=== PATIENT | male | born 1965 | race Caucasian/White ===

== ENCOUNTER 2016-12-10 12:59 | Inpatient (IN) | payer MEDICARE, OTHER ==
[2016-12-10] MEDS ORDERED: SODIUM CHLORIDE 0.9% 1,000 ML IV ONE (13:08)
--- NOTE | 2016-12-10 13:25 | ED ---
Overdose HPI - General Chief Complaint: Overdose Stated Complaint: overdose Time Seen by Provider: 12/10/16 13:06 Source: police, EMS Mode of arrival: EMS Limitations: altered mental status - History of Present Illness Initial Comments: This is a 51-year-old male with unknown past medical history who presents emergency department for overdose on diphenhydramine. The patient is unable to provide any history because of his mental status changes however the patient reportedly took 9025 mg tabs of diphenhydramine within the last hour. The EMS stated that he did not state that it was a suicide attempt and that he was just taking it because he couldn't sleep and had "the sniffles". Again the patient is unable to answer any questions because of mental status changes at this time. - Related Data Home Medications Medication Instructions Recorded Confirmed Unable To Assess [Unable to Assess] 12/10/16 12/10/16 Allergies Allergy/AdvReac Type Severity Reaction Status Date / Time Unable to Assess Allergy Verified 12/10/16 13:23 Review of Systems ROS Statement: Those systems with pertinent positive or pertinent negative responses have been documented in the HPI. ROS Other: All systems not noted in ROS Statement are negative. Past Medical History Past Medical History: Unable to Obtain History of Any Multi-Drug Resistant Organisms: Unobtainable Past Surgical History: Unable to Obtain Past Psychological History: Unable to Obtain Smoking Status: Unknown if ever smoked Past Alcohol Use History: Unable to Obtain Past Drug Use History: Unable to Obtain General Exam - General Exam Comments Initial Comments: Constitutional: He is awake and alert however will not answer questions, he is slightly agitated Head: Normocephalic atraumatic Eyes: no conjunctival injection No scleral icterus EOMI, pupils are 5 mm and reactive bilaterally Neck: No JVD Supple Heart: Regular rate rhythm normal S1-S2 no murmurs Lungs: Clear to auscultation bilaterally No wheezing No rales Abdomen: Soft nondistended nontender, bowel sounds are present Extremities: Non edematous DP pulses intact Radial pulses intact Neuro: A&Ox3 the patient will move his extremities spontaneously, he will not answer questions however does attempt to talk when spoken to, extraocular muscles are intact, will not follow commands Psych: Appropriate mood and affect Limitations: altered mental status Course Vital Signs 12/10/16 12/10/16 12/10/16 13:15 13:20 14:00 Temperature 96.8 F L Pulse Rate 120 H 116 H 104 H Respiratory 14 18 18 Rate Blood Pressure 191/116 200/116 207/111 O2 Sat by Pulse 93 L 95 Oximetry 12/10/16 12/10/16 12/10/16 14:30 14:38 15:00 Temperature 97.1 F L Pulse Rate 99 98 96 Respiratory 18 18 18 Rate Blood Pressure 195/112 190/106 197/107 O2 Sat by Pulse 100 99 97 Oximetry 12/10/16 12/10/16 12/10/16 15:30 16:03 16:18 Temperature Pulse Rate 96 95 100 Respiratory 18 18 18 Rate Blood Pressure 193/107 180/111 191/120 O2 Sat by Pulse 97 2 L 98 Oximetry - Reevaluation(s) Reevaluation #1: 12/10/16 13:24 EKG showing sinus tachycardia with a rate of 118. There is a right bundle- branch block with no abnormal ST segment changes or T-wave inversions. QTC is 496. Other intervals are normal. No ectopy. Reevaluation #2: 12/10/16 13:55 I spoke with poison control about the patient. They recommended close monitoring for the next 6-8 hours. Toxicology workup. Ativan as needed for agitation. They did not recommend charcoal because of the patient's mental status changes. Medical Decision Making - Medical Decision Making Is a 51-year-old male presents emergency department for Benadryl overdose. The patient was monitored for about 4 hours and did not have any change in his mental status. He's protecting his airway however is definitely somnolent and doesn't respond to questioning. I'm going to put him in ICU for airway monitoring until the medication can wear off. I did place psychiatric services on consultation. [facility] management. Patient is stable for transfer. - Lab Data Result diagrams: 12/10/16 13:35 12/10/16 13:35 Lab Results 12/10/16 12/10/16 12/10/16 Range/Units 13:19 13:35 13:35 WBC (3.8-10.6) k/uL RBC (4.30-5.90) m/uL Hgb (13.0-17.5) gm/dL Hct (39.0-53.0) % MCV (80.0-100.0) fL MCH (25.0-35.0) pg MCHC (31.0-37.0) g/dL RDW (11.5-15.5) % Plt Count (150-450) k/uL Neutrophils % % Lymphocytes % % Monocytes % % Eosinophils % % Basophils % % Neutrophils # (1.3-7.7) k/uL Lymphocytes # (1.0-4.8) k/uL Monocytes # (0-1.0) k/uL Eosinophils # (0-0.7) k/uL Basophils # (0-0.2) k/uL PT 11.6 (9.0-12.0) sec INR 1.2 (<1.1) APTT 19.6 L (22.0-30.0) sec Sodium 136 L (137-145) mmol/L Potassium 4.7 (3.5-5.1) mmol/L Chloride 102 (98-107) mmol/L Carbon Dioxide 22 (22-30) mmol/L Anion Gap 12 mmol/L BUN 11 (9-20) mg/dL Creatinine 0.54 L (0.66-1.25) mg/dL Est GFR (MDRD) Af Amer >60 (>60 ml/min/1.73 sqM) Est GFR (MDRD) Non-Af >60 (>60 ml/min/1.73 sqM) Glucose 278 H (74-99) mg/dL POC Glucose (mg/dL) (75-99) mg/dL POC Glu [employer] ID Plasma Lactic Acid Gonzales (0.7-2.0) mmol/L Calcium 9.6 (8.4-10.2) mg/dL Magnesium 1.8 (1.6-2.3) mg/dL Total Bilirubin 0.7 (0.2-1.3) mg/dL AST 18 (17-59) U/L ALT 22 (21-72) U/L Alkaline Phosphatase 74 (38-126) U/L Total Protein 6.8 (6.3-8.2) g/dL Albumin 3.9 (3.5-5.0) g/dL Urine Color Light Yellow Urine Appearance Clear (Clear) Urine pH 6.5 (5.0-8.0) Ur Specific [place] 1.008 (1.001-1.035) Urine Protein 1+ H (Negative) Urine Glucose (UA) 4+ H (Negative) Urine Ketones 1+ H (Negative) Urine Blood Negative (Negative) Urine Nitrite Negative (Negative) Urine Bilirubin Negative (Negative) Urine Urobilinogen <2.0 (<2.0) mg/dL Ur Leukocyte Esterase Negative (Negative) Urine RBC <1 (0-5) /hpf Urine WBC <1 (0-5) /hpf Ur Squamous Epith Cells <1 (0-4) /hpf Salicylates <1.0 mg/dL Urine Opiates Screen Not Detected (NotDetected) Ur Oxycodone Screen Not Detected (NotDetected) Urine Methadone Screen Not Detected (NotDetected) Ur Propoxyphene Screen Not Detected (NotDetected) Acetaminophen <10.0 ug/mL Ur Barbiturates Screen Not Detected (NotDetected) U Tricyclic Antidepress Not Detected (NotDetected) Ur Phencyclidine Scrn Not Detected (NotDetected) Ur Amphetamines Screen Not Detected (NotDetected) U Methamphetamines Scrn Not Detected (NotDetected) U Benzodiazepines Scrn Not Detected (NotDetected) Urine Cocaine Screen Not Detected (NotDetected) U Marijuana (THC) Screen Not Detected (NotDetected) Serum Alcohol <10 mg/dL 12/10/16 12/10/16 12/10/16 Range/Units 13:35 13:35 15:44 WBC 9.2 (3.8-10.6) k/uL RBC 6.04 H (4.30-5.90) m/uL Hgb 18.3 H (13.0-17.5) gm/dL Hct 54.6 H (39.0-53.0) % MCV 90.3 (80.0-100.0) fL MCH 30.2 (25.0-35.0) pg MCHC 33.4 (31.0-37.0) g/dL RDW 13.3 (11.5-15.5) % Plt Count 279 (150-450) k/uL Neutrophils % 69 % Lymphocytes % 21 % Monocytes % 7 % Eosinophils % 1 % Basophils % 1 % Neutrophils # 6.4 (1.3-7.7) k/uL Lymphocytes # 2.0 (1.0-4.8) k/uL Monocytes # 0.6 (0-1.0) k/uL Eosinophils # 0.1 (0-0.7) k/uL Basophils # 0.1 (0-0.2) k/uL PT (9.0-12.0) sec INR (<1.1) APTT (22.0-30.0) sec Sodium (137-145) mmol/L Potassium (3.5-5.1) mmol/L Chloride (98-107) mmol/L Carbon Dioxide (22-30) mmol/L Anion Gap mmol/L BUN (9-20) mg/dL Creatinine (0.66-1.25) mg/dL Est GFR (MDRD) Af Amer (>60 ml/min/1.73 sqM) Est GFR (MDRD) Non-Af (>60 ml/min/1.73 sqM) Glucose (74-99) mg/dL POC Glucose (mg/dL) 206 H (75-99) mg/dL POC Glu [employer] ID RiveraTasha Plasma Lactic Acid Gonzales 1.3 (0.7-2.0) mmol/L Calcium (8.4-10.2) mg/dL Magnesium (1.6-2.3) mg/dL Total Bilirubin (0.2-1.3) mg/dL AST (17-59) U/L ALT (21-72) U/L Alkaline Phosphatase (38-126) U/L Total Protein (6.3-8.2) g/dL Albumin (3.5-5.0) g/dL Urine Color Urine Appearance (Clear) Urine pH (5.0-8.0) Ur Specific [place] (1.001-1.035) Urine Protein (Negative) Urine Glucose (UA) (Negative) Urine Ketones (Negative) Urine Blood (Negative) Urine Nitrite (Negative) Urine Bilirubin (Negative) Urine Urobilinogen (<2.0) mg/dL Ur Leukocyte Esterase (Negative) Urine RBC (0-5) /hpf Urine WBC (0-5) /hpf Ur Squamous Epith Cells (0-4) /hpf Salicylates mg/dL Urine Opiates Screen (NotDetected) Ur Oxycodone Screen (NotDetected) Urine Methadone Screen (NotDetected) Ur Propoxyphene Screen (NotDetected) Acetaminophen ug/mL Ur Barbiturates Screen (NotDetected) U Tricyclic Antidepress (NotDetected) Ur Phencyclidine Scrn (NotDetected) Ur Amphetamines Screen (NotDetected) U Methamphetamines Scrn (NotDetected) U Benzodiazepines Scrn (NotDetected) Urine Cocaine Screen (NotDetected) U Marijuana (THC) Screen (NotDetected) Serum Alcohol mg/dL Disposition Clinical Impression: Diphenhydramine overdose Disposition: ADMITTED IP TO THIS HOSP Condition: Critical
[2016-12-10 13:27] LABS: Appearance,Urine Clear (Clear); Bilirubin,Urine Negative (Negative); Glucose,Urine (UA) 4+ (Negative); Ketones,Urine 1+ (Negative); Leukocyte Esterase,Urine Negative (Negative); Nitrite,Urine Negative (Negative); PH, Urine 6.5 (5.0-8.0); Particle Count 700; Protein,Urine 1+ (Negative); RBC,Urine <1 /hpf (0-5); Specific Gravity,Urine 1.008 (1.001-1.035); Squamous Epithelial Cell,Urine <1 /hpf (0-4); UA Billing (MACRO vs. MICRO) MICRO; Urobilinogen,Urine <2.0 mg/dL (<2.0); WBC,Urine <1 /hpf (0-5)
[2016-12-10] MEDS: SODIUM CHLORIDE 0.9% 1,000 ML IV SCH ×2 (13:54→23:43)
[2016-12-10] MEDS ORDERED: LORazepam 2 MG/ML SYRINGE IV STA ×2 (13:55→13:57)
[2016-12-10 14:14] LABS: INR 1.2 (<1.1); Prothrombin Time 11.6 sec (9.0-12.0)
[2016-12-10 14:23] LABS: Partial Thromboplastin Time 19.6 sec (22.0-30.0)
[2016-12-10 15:23] LABS: Basophils # (A) 0.1 k/uL (0-0.2); Basophils % (A) 1 %; CH 30.6; Eosinophils # (A) 0.1 k/uL (0-0.7); Eosinophils % (A) 1 %; HCT 54.6 % (39.0-53.0); HDW 2.27; HGB 18.3 gm/dL (13.0-17.5); Luc # (Auto) 0.16; Luc % (Auto) 2; Lymphocytes % (A) 21 %; MCH 30.2 pg (25.0-35.0); MCHC 33.4 g/dL (31.0-37.0); MCV 90.3 fL (80.0-100.0); Mean Platelet Volume 8.5; Monocytes # (A) 0.6 k/uL (0-1.0); Monocytes % (A) 7 %; Neutrophils # (A) 6.4 k/uL (1.3-7.7); Neutrophils % (A) 69 %; RBC 6.04 m/uL (4.30-5.90); RDW 13.3 % (11.5-15.5); WBC 9.2 k/uL (3.8-10.6); WBC (Perox) 9.46
[2016-12-10 15:24] LABS: ALT 22 U/L (21-72); AST 18 U/L (17-59); Acetaminophen <10.0 ug/mL; Alcohol <10 mg/dL; Alkaline Phosphatase 74 U/L (38-126); Anion Gap 12 mmol/L; Blood Urea Nitrogen 11 mg/dL (9-20); Calcium 9.6 mg/dL (8.4-10.2); Carbon Dioxide 22 mmol/L (22-30); Chloride 102 mmol/L (98-107); Glucose 278 mg/dL (74-99); Magnesium 1.8 mg/dL (1.6-2.3); Non-African American GFR(MDRD) >60 (>60 ml/min/1.73 sqM); Salicylate <1.0 mg/dL; Sodium 136 mmol/L (137-145); Total Bilirubin 0.7 mg/dL (0.2-1.3); Total Protein 6.8 g/dL (6.3-8.2)
[2016-12-10 15:25] LABS: Potassium 4.7 mmol/L (3.5-5.1)
[2016-12-10 15:45] LABS: Glucose,Whole Blood 206 mg/dL (75-99)
[2016-12-10] MEDS ORDERED: LABETALOL 5 MG/ML VIAL MDV IVP STA (16:09)
--- NOTE | 2016-12-10 16:09 | CT ---
EXAMINATION TYPE: CT brain wo con DATE OF EXAM: 12/10/2016 4:03 PM HISTORY: Patient overdosed on medication, headache per order. CT DLP: 1097.2 mGycm. Automated Exposure Control for Dose Reduction was Utilized. TECHNIQUE: CT scan of the head is performed without contrast. COMPARISON: None. FINDINGS: There is no acute intracranial hemorrhage or midline shift identified. There is diffuse v entricular and sulcal prominence consistent with diffuse age-related cerebral atrophy. There is low- attenuation in the periventricular white matter consistent with chronic small vessel ischemic change. The globes are intact and the visualized sinuses are clear. IMPRESSION: No acute intracranial hemorrhage or midline shift. There is mild to moderate diffuse ag e-related cerebral atrophy and chronic small vessel ischemic change noted.
[2016-12-10] MEDS ORDERED: NALOXONE 0.4 MG/ML 1 ML VIAL IV PRN (16:19)
[2016-12-10 17:26] LABS: Glucose,Whole Blood 196 mg/dL (75-99)
[2016-12-10] MEDS ORDERED: LABETALOL 5 MG/ML VIAL MDV IVP PRN ×2 (18:14)
[2016-12-10] MEDS ORDERED: LORazepam 2 MG/ML SYRINGE IV PRN (18:20)
[2016-12-10] MEDS ORDERED: INSULIN LISPRO (humaLOG) 300 UNIT/3 ML VIAL SQ SCH (19:00)
[2016-12-10] MEDS ORDERED: HALOPERIDOL LACTATE 5 MG/ML 1 ML VIAL IVP PRN (20:34)
[2016-12-10] MEDS: PANTOPRAZOLE 40 MG/10 ML VIAL IVP SCH (20:37)
[2016-12-10 20:41] LABS: Glucose,Whole Blood 209 mg/dL (75-99)
[2016-12-10] MEDS: HEPARIN SODIUM,PORCINE 5,000 UNIT/ML 1 ML VIAL SQ SCH (20:45)
[2016-12-10 22:08] VITALS: RESP 16
[2016-12-10 22:29] LABS: Hemoglobin A1C 11.9 % (4.2-6.1)
[2016-12-10 23:42] LABS: Glucose,Whole Blood 198 mg/dL (75-99)
[2016-12-10] MEDS: INSULIN LISPRO (humaLOG) 300 UNIT/3 ML VIAL SQ SCH (23:44)
[2016-12-11 04:45] LABS: Basophils % (A) 0 %; CH 29.9; CHCM 31.8; Eosinophils % (A) 0 %; HCT 50.7 % (39.0-53.0); HDW 2.18; HGB 16.1 gm/dL (13.0-17.5); Luc # (Auto) 0.22; Luc % (Auto) 2; Lymphocytes # (A) 1.8 k/uL (1.0-4.8); Lymphocytes % (A) 14 %; MCHC 31.8 g/dL (31.0-37.0); MCV 94.5 fL (80.0-100.0); Mean Platelet Volume 7.1; Monocytes # (A) 1.1 k/uL (0-1.0); Monocytes % (A) 9 %; Neutrophils # (A) 9.7 k/uL (1.3-7.7); Neutrophils % (A) 76 %; RBC 5.37 m/uL (4.30-5.90); RDW 13.7 % (11.5-15.5); WBC 12.9 k/uL (3.8-10.6); WBC (Perox) 13.56
[2016-12-11 05:02] LABS: ALT 24 U/L (21-72); AST 13 U/L (17-59); Alkaline Phosphatase 70 U/L (38-126); Anion Gap 14 mmol/L; Blood Urea Nitrogen 6 mg/dL (9-20); Calcium 9.4 mg/dL (8.4-10.2); Carbon Dioxide 19 mmol/L (22-30); Chloride 106 mmol/L (98-107); Glucose 195 mg/dL (74-99); Magnesium 1.5 mg/dL (1.6-2.3); Non-African American GFR(MDRD) >60 (>60 ml/min/1.73 sqM); Phosphorous 4.1 mg/dL (2.5-4.5); Potassium 4.2 mmol/L (3.5-5.1); Sodium 139 mmol/L (137-145); Total Bilirubin 0.7 mg/dL (0.2-1.3); Total Protein 5.9 g/dL (6.3-8.2)
[2016-12-11 06:13] LABS: Glucose,Whole Blood 202 mg/dL (75-99)
[2016-12-11] MEDS: INSULIN LISPRO (humaLOG) 300 UNIT/3 ML VIAL SQ SCH ×3 (06:33→17:47)
[2016-12-11] MEDS: MAGNESIUM SULFATE-D5W PMX 1 GM in DEXTROSE/WATER 1 100ML.BAG IVPB SCH ×2 (06:36→10:28)
[2016-12-11 09:41] VITALS: BMI 30.9
--- NOTE | 2016-12-11 09:45 | P.CNPUL ---
History of Present Illness Consult date: 12/11/16 Reason for consult: other Chief complaint: Overdose History of present illness: This is a 51-year-old male with a history of hypertension and diabetes. Hasn't seen a doctor in years. 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 The patient anyway apparently took overdose of Benadryl. There we believe the 25 mg Benadryl as a May be 90 tablets. His was a suicide attempt. He feels like he is depressed. He was admitted on December 10. He takes no medications at home. Has no ALLERGIES. He currently is on room air. He is getting an IV appointment 9 at 100 mL an hour. Very very stable. The patient seemed remorseful. Psychiatry seen the patient already. The patient can be transferred out of the unit later today down to psychiatry. I did ask the nurse to feed him. Review of Systems A 12 point review of system is noncontributory. Nothing major in the way of complaints. The patient is depressed so. Psychiatry has seen the patient. Past Medical History Past Medical History: Diabetes Mellitus History of Any Multi-Drug Resistant Organisms: None Reported Past Surgical History: Unable to Obtain Past Anesthesia/Blood Transfusion Reactions: No Reported Reaction Past Psychological History: ADD/ADHD, Depression Smoking Status: Current every day smoker Past Alcohol Use History: Unable to Obtain Past Drug Use History: Unable to Obtain Medications and Allergies Home Medications Medication Instructions Recorded Confirmed Type Unable To Assess [Unable to Assess] 12/10/16 12/10/16 History Allergies Allergy/AdvReac Type Severity Reaction Status Date / Time Unable to Assess Allergy Verified 12/10/16 13:23 Physical Exam Osteopathic Statement: *. No significant issues noted on an osteopathic structural exam other than those noted in the History and Physical/Consult. Vitals: Vital Signs Temp Pulse Pulse Resp BP BP Pulse Ox 12/11/16 07:00 85 16 154/79 96 12/11/16 06:00 84 158/84 93 L 12/11/16 05:00 83 148/84 93 L 12/11/16 04:00 98.2 F 80 16 158/84 95 12/11/16 03:33 98.3 F 12/11/16 03:00 85 181/89 95 12/11/16 02:00 83 142/82 96 12/11/16 01:00 82 139/78 96 12/11/16 00:00 98.2 F 86 16 184/94 95 12/10/16 23:00 82 133/105 95 12/10/16 22:02 78 152/88 96 12/10/16 22:00 78 16 152/88 96 12/10/16 21:30 77 16 154/90 96 12/10/16 21:00 77 16 145/82 96 12/10/16 20:33 98.1 F 15 98 12/10/16 20:30 78 16 164/105 96 12/10/16 20:00 98.3 F 85 16 188/101 97 12/10/16 19:30 88 191/100 97 12/10/16 19:00 87 20 176/107 97 12/10/16 18:30 86 20 180/99 98 12/10/16 18:00 85 18 173/100 96 12/10/16 17:23 97.2 F L 84 18 170/104 98 12/10/16 17:01 96.7 F L 84 18 177/98 98 Intake and Output 12/10/16 12/11/16 12/11/16 22:59 06:59 14:59 Intake Total 500 920 100 Output Total 1330 500 100 Balance -830 420 0 Intake: Intake, IV Titration 500 800 100 Amount Sodium Chloride 0.9% 1, 500 800 100 000 ml @ 100 mls/hr IV . Q10H [facility] Rx#:[id number] Oral 120 Output: Urine 1330 500 100 Other: Voiding Method Indwelling Catheter Indwelling Catheter Weight 93.4 kg 100.8 kg No acute distress, oriented 3. HEENT examination is grossly unremarkable. Neck supple. Full range of motion. No adenopathy or thyromegaly. Cardio vascular examination reveals regular rhythm rate. Heart rate in the mid 80s. S1-S2 normal. No murmur. Lungs clear breath sounds equal. No adventitious lung sounds Abdomen soft bowel sounds are heard. Extremities are intact. Results - Laboratory Findings CBC and BMP: 12/11/16 04:03 12/11/16 04:03 PT/INR, D-dimer PT 11.6 sec (9.0-12.0) 12/10/16 13:35 INR 1.2 (<1.1) 12/10/16 13:35 Abnormal lab findings: Abnormal Labs 12/10/16 12/10/1617 17:23 20:39 23:41 WBC Neutrophils # Monocytes # Carbon Dioxide BUN Creatinine Glucose POC Glucose (mg/dL) 196 H 209 H 198 H Magnesium AST Total Protein Albumin 12/11/16 12/11/16 12/11/16 04:03 04:03 06:11 WBC 12.9 H Neutrophils # 9.7 H Monocytes # 1.1 H Carbon Dioxide 19 L BUN 6 L Creatinine 0.55 L Glucose 195 H POC Glucose (mg/dL) 202 H Magnesium 1.5 L AST 13 L Total Protein 5.9 L Albumin 3.4 L Assessment and Plan (1) Hypertension Status: Acute (2) Diabetes Status: Acute (3) Depression Status: Acute (4) Suicide attempt Status: Acute (5) Diphenhydramine overdose Status: Acute Plan: Plan dated 12/11/2016 The patient said doing well. The patient will be transferred down to psychiatry. Psychiatry was re-seen the patient. The patient can be fed. We' ll continue to observe the patient here to about mid afternoon. Afterwards patient can be transferred. No additional recommendations are made. We'll continue to follow as needed. Time with Patient: Greater than 30
[2016-12-11] MEDS: HEPARIN SODIUM,PORCINE 5,000 UNIT/ML 1 ML VIAL SQ SCH (10:28)
[2016-12-11] MEDS: PANTOPRAZOLE 40 MG/10 ML VIAL IVP SCH (10:28)
[2016-12-11] MEDS: SODIUM CHLORIDE 0.9% 1,000 ML IV SCH (10:29)
[2016-12-11 10:30] VITALS: TEMP 98.1
[2016-12-11 12:49] LABS: Glucose,Whole Blood 198 mg/dL (75-99)
--- NOTE | 2016-12-11 13:57 | CONS ---
DATE OF CONSULTATION: REASON FOR CONSULTATION: Suicidal attempt with overdose. HISTORY OF PRESENT ILLNESS: Patient is a 51 male who was currently living on his own and he is on Social Security disability since 2011, who presented to the emergency department after he overdosed on Benadryl. Patient was petitioned by the EMS staff. Patient was very cooperative in the session. He reports history of depression and anxiety on and off since 2004; however, he has been more depressed for the last couple of years to the point that he neglects taking his metformin or any other medication. At that time, his mother was diagnosed with dementia and patient had to moved with her to take care of her. Patient's mother in November 2015 and since then, patient has been feeling worthless, pessimistic, trouble sleeping at night, especially for the last 4 weeks, poor appetite, with at least 10 pound weight loss over 4 weeks. Indecisive, no energy, fatigued. He denied any psychotic feature, but he described very high anxiety, characterized by of restless feeling, racing thoughts, irritability, and feeling on edge. Patient talked about ongoing stressors including multiple medical problems, especially he has been feeling that his physical health has been declining over the last couple of months as he said, "I fell down in my apartment at least 6 times over the last week." Patient has very limited social support system and he stated that his father at age 52 or 53 with [place]'s chorea and patient is afraid to have the same illness. Patient also lost his oldest brother with [place]'s chorea. Patient does not have close relationship with the other siblings, also his 3 children are to not close to him. PAST PSYCHIATRIC HISTORY: In 2004 patient was admitted inpatient at [facility] for 1 or 2 weeks and diagnosed with depression and anxiety. At that time, he was thinking about suicide; however, he did not act on it and he called the crisis line. He stated that at that time what triggered his severe depression and suicidal ideation, it was the of his father and the end of 21 years of marriage. He was started on Zoloft and he was not counseling for a couple of months, then he continued on Zoloft prescribed by his primary care physician. At the time of his arrival, white blood cells slightly increased 12.9, carbon dioxide low, blood glucose 198, magnesium is low is 1.5, urine drug screen is negative, salicylate is less than 1. Family history of psychiatric illness: 1. Both parents were alcoholic and had depression. 2. Maternal uncle committed suicide. SUBSTANCE ABUSE HISTORY: Patient denied any alcohol or any other drug use. He has been smoking at least 1 pack a day for the last 25 years. MEDICAL HISTORY: Diabetes, hypertension. As I mentioned before, patient has been noncompliant with his medication for at least a couple of years and has not seen any physician in a couple of years. 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 He is receiving Social Security disability since 2011. He had 5 siblings, 2 , 1 with Siddhartha's chorea and 1 with kidney disease. Patient was for 21 years and has 3 children between age 25 to 21. He has been for more than 11 years. His youngest son 21, he is currently deported and he is in the [employer]. Patient does not have much contact with them. As I mentioned before, he lost his father in 2004 and lost his mother in 2015. He was living with his mother until she . MENTAL STATUS EXAMINATION: Patient presented as male who appears his stated age. He has good eye contact. Speech is not spontaneous but coherent. Thought process is tangential. He endorses severe depression and anxiety. Denied any current suicidal ideation; however, he did admit that he has been neglecting his physical and mental health for the last couple of years. He reports no homicidal ideation. Patient was tearful when talking about multiple medical problem and the fear of having Siddhartha's chorea. He denied any psychotic feature. He does not appear manic or hypomanic. His affect was dysphoric with mixture of anxiety, irritability, and depression. He expressed feeling hopeless, helpless, overwhelmed and worthless. DIAGNOSIS: Major depression, recurrent, severe without psychotic feature. PLAN: Patient did agree to sign himself in voluntarily to be transferred to the mental health unit, when he is medically cleared.
--- NOTE | 2016-12-11 15:12 | HP ---
DATE OF ADMISSION: The dictation is both H&P and Discharge Summary. Patient is a 51-year-old gentleman admitted secondary to overdose on Benadryl. Patient took about 90 pills of 25 mg of Benadryl and patient was depressed and denied attempt to commit suicide. Did take these 90 pills and patient was on IV fluids overnight. Patient was tachycardic and patient did okay without any ( ). Patient was monitored overnight. Patient is clinically doing well and patient is tachycardic at this point of time. Patient is not having arrhythmias. Patient is awake, alert and patient was ( ) as well. Patient is otherwise, clinically doing well. Patient was evaluated by Psychiatry and they are recommending inpatient psychiatry hospitalization. REVIEW OF SYSTEMS: CONSTITUTIONAL: No fever, no malaise, no fatigue. HEENT: No recent visual problems or hearing problems. Denied any sore throat. CARDIOVASCULAR: No chest pain, orthopnea, PND, no palpitations, no syncope. PULMONARY: No shortness of breath, no cough, no hemoptysis. GASTROINTESTINAL: No diarrhea, no nausea, no vomiting, no abdominal pain. Normoactive bowel sounds. NEUROLOGICAL: No headaches, no weakness, no numbness. HEMATOLOGICAL: Denies any bleeding or petechiae. GENITOURINARY: Denies any burning micturition, frequency, or urgency. MUSCULOSKELETAL/RHEUMATOLOGICAL: Denies any joint pain, swelling, or any muscle pain. ENDOCRINE: Denies any polyuria or polydipsia. PSYCHIATRY: As mentioned above. The rest of the 14 point review of systems is negative. PAST MEDICAL HISTORY: Significant for diabetes mellitus and depression. Patient does smoke, denied any alcohol abuse or any drug abuse. FAMILY HISTORY: Significant for diabetes mellitus. PHYSICAL EXAMINATION: VITAL SIGNS: Temperature 98.2, pulse is 80, respiratory rate of 16, blood pressure 158/84, saturating at 95% on room air. GENERAL: The patient is alert and oriented x3, not in any acute distress. Well developed, well nourished. HEENT: Pupils are round and equally reacting to light. EOMI. No scleral icterus. No conjunctival pallor. Normocephalic, atraumatic. No pharyngeal erythema. No thyromegaly. CARDIOVASCULAR: S1 and S2 present. No murmurs, rubs, or gallops. PULMONARY: Chest is clear to auscultation, no wheezing or crackles. ABDOMEN: Soft, nontender, nondistended, normoactive bowel sounds. No palpable organomegaly. MUSCULOSKELETAL: No joint swelling or deformity. EXTREMITIES: No cyanosis, clubbing, or pedal edema. NEUROLOGICAL: Gross neurological examination did not reveal any focal deficits. SKIN: No rashes. LABORATORY DATA: CBC, CMP within normal limits and patient does have leukocytosis which is a reactive response, ( ) elevated. Magnesium is 1.5 which will be supplemented. ASSESSMENT AND PLAN: 1. Overdose on diphenhydramine. Patient is clinically doing well and patient was monitored overnight in ICU and patient is okay to be discharged to Psychiatry floor medically. 2. Diabetes mellitus, will continue with his home regimen. Patient needs twice monitoring with Accu-Cheks. 3. Suicide attempt and depression, management as per Psychiatry. 4. Hypertension. Patient can continue his home medications. Will continue to follow him on psychiatric floor and will titrate diabetic and hypertensive medications accordingly depending on his vital signs. Patient is medically cleared to be discharged to psychiatric floor. Discharge diet cardiac and diabetic diet. Activity as per for the inpatient psychiatric facility.
[2016-12-11 15:54] VITALS: BP 134/77
[2016-12-11 17:01] VITALS: PULSE 86
[2016-12-11 17:43] LABS: Glucose,Whole Blood 197 mg/dL (75-99)
== END 2016-12-11 18:16 | DRG 918 ==
LOC: EC 12:59 → 6ICU 16:19
PROVIDERS: ADMIT Internal Medicine; ATTEND Internal Medicine
DX: T45.0X2A Poisoning by antiallergic and antiemetic drugs, intentional self-harm, initial encounter (principal); F33.2 Major depressive disorder, recurrent severe without psychotic features; E11.9 Type 2 diabetes mellitus without complications; F17.200 Nicotine dependence, unspecified, uncomplicated; F41.9 Anxiety disorder, unspecified; I10 Essential (primary) hypertension; Z81.8 Family history of other mental and behavioral disorders; Z91.14 Patient's other noncompliance with medication regimen; Z79.899 Other long term (current) drug therapy
CPT/HCPCS: 36415; 70450; 80053; 80306; 80320; 81001; 83036; 83520; 83605; 83735; 84100; 85025; 85610; 85730; 93005; 96361; 96374; 96375; 96376; 99285

== ENCOUNTER 2016-12-11 16:22 | Inpatient (IN) | payer MEDICARE, MEDICAID ==
[2016-12-11] MEDS ORDERED: MAGNESIUM HYDROXIDE 2,400 MG/10 ML CUP PO PRN (19:34)
[2016-12-11] MEDS ORDERED: MAG HYDROX/AL HYDROX/SIMETH 30 ML CUP PO PRN (19:34)
[2016-12-11] MEDS ORDERED: LORazepam 2 MG/ML SYRINGE IM PRN (19:37)
[2016-12-11 20:21] LABS: Glucose,Whole Blood 222 mg/dL (75-99)
[2016-12-11] MEDS: INSULIN LISPRO (humaLOG) 300 UNIT/3 ML VIAL SQ SCH (20:46)
[2016-12-11] MEDS: ACETAMINOPHEN TAB 325 MG TAB PO PRN (20:48)
[2016-12-11] MEDS ORDERED: INSULIN GLARGINE 100 UNIT/ML 10 ML VIAL SQ SCH (21:00)
[2016-12-12 06:36] LABS: Glucose,Whole Blood 283 mg/dL (75-99)
[2016-12-12] MEDS: PANTOPRAZOLE 40 MG TABLET PO SCH ×2 (08:22→17:40)
[2016-12-12] MEDS: INSULIN LISPRO (humaLOG) 300 UNIT/3 ML VIAL SQ SCH ×4 (08:22→19:59)
[2016-12-12 09:43] LABS: Basophils # (A) 0.1 k/uL (0-0.2); Basophils % (A) 1 %; CH 29.9; CHCM 32.7; Eosinophils % (A) 0 %; HCT 49.7 % (39.0-53.0); HDW 2.22; HGB 16.1 gm/dL (13.0-17.5); Luc # (Auto) 0.18; Luc % (Auto) 2; Lymphocytes # (A) 1.3 k/uL (1.0-4.8); Lymphocytes % (A) 11 %; MCH 29.7 pg (25.0-35.0); MCHC 32.3 g/dL (31.0-37.0); MCV 91.9 fL (80.0-100.0); Mean Platelet Volume 7.8; Monocytes # (A) 0.7 k/uL (0-1.0); Monocytes % (A) 6 %; Neutrophils # (A) 9.1 k/uL (1.3-7.7); Neutrophils % (A) 80 %; RDW 13.5 % (11.5-15.5); WBC 11.3 k/uL (3.8-10.6); WBC (Perox) 11.65
[2016-12-12 10:00] LABS: Magnesium 1.9 mg/dL (1.6-2.3)
[2016-12-12 12:26] LABS: Glucose,Whole Blood 145 mg/dL (75-99)
[2016-12-12 15:04] VITALS: BMI 31.6
[2016-12-12 17:06] LABS: Glucose,Whole Blood 126 mg/dL (75-99)
[2016-12-12] MEDS: metFORMIN 500 MG TAB PO SCH (17:40)
[2016-12-12] MEDS: IBUPROFEN 400 MG TAB PO PRN (17:40)
--- NOTE | 2016-12-12 18:34 | HP ---
DATE OF ADMISSION: Patient is known to me from previous encounter, as I saw him in consultation liaison IDENTIFYING DATA: Patient is a 51-year-old male who has been on Social Security Disability since 2011 and currently is living on his own. HISTORY OF PRESENT ILLNESS: Patient presented to the emergency room after he took an overdose of Benadryl, as he felt severely depressed and hopeless. Patient stated that he has been struggling with symptoms of depression and anxiety since 2004, but his depression has been getting worse since his mother in November of 2015. He endorses trouble sleeping at night. Energy has been very low. No motivation for any activity. Self dislike. Easily agitated. Indecisive. Neglecting himself; he even has been noncompliant with his diabetic medication and antihypertensive medication. Patient described a lot of physical complaints. He stated that he has been having an unsteady gait, and he fell down more than 6 times over the last week prior to his admission. Patient described, "I'm feeling useless and I don't have anyone to support me in my life." Patient stated that he has a friend from his old work, but he has been isolating himself for at least one year. He does not socialize with anyone. He feels that he will sooner or later with Limestone's chorea, as he lost his father and his older brother, who both at an early age with Siddhartha's chorea. PAST PSYCHIATRIC HISTORY: There is one previous inpatient psych hospitalization in 2004. He was contemplating suicide and he was hospitalized at [facility] and was diagnosed with severe depression and anxiety. What triggered this was the loss of his father and the end of his marriage. He stated that he was started on Zoloft. He did not continue in the outpatient counseling and he was getting his psychotropic medication from his primary care physician. SUBSTANCE ABUSE HISTORY: Patient denied any current alcohol use. Denied any street drug use. Smoking 1 pack a day for at least 25 years. FAMILY HISTORY OF PSYCHIATRIC ILLNESS: Maternal uncle committed suicide. Both parents were alcoholic and had depression. BRIEF SOCIAL HISTORY: Patient was raised by both parents. He had 5 siblings, but 2 . 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 He has been on Disability since 2011. His parents both are . His father in 2004. Mother in 2016. Patient was once for 21 years. The marriage ended by divorce 11 or 13 years ago. He has 3 grownup children, but he does not have contact with them. MEDICAL HISTORY: 1. Diabetes. 2. Hypertension. 3. Chronic back pain. 4. Neuropathy. 5. Unsteady gait. MENTAL STATUS EXAMINATION: Patient presented as a male who appears his stated age. He was in his wheelchair, as he has an unsteady gait. He gave good eye contact. He is not spontaneous but coherent. There is psychomotor retardation. He had a distressed facial expression. His affect is constricted. He described depressive symptoms, including hopeless, helpless and feeling worthless, but denied any current active suicidal ideation or wish. He denied any homicidal ideation. Denied any psychotic feature. He has a lot of somatic complaints. Denied any manic or hypomanic feature. He does not appear to be responding to internal stimuli. His insight and judgment are fair to limited. Cognitive function is grossly intact. He was alert, oriented to person, place, but when asked the exact date he stated that it is the second week of November. He did recall 2 out of 3 objects after a couple of minutes. STRENGTHS: Patient is well education and has income. WEAKNESSES: Recurrent mental health issues. Poor compliance with medication, even with his outpatient treatment for his diabetes. DISCHARGE DIAGNOSES: 1. Major depression, recurrent, severe, without psychotic feature. 2. Anxiety disorder. 3. Uncontrolled diabetes. 4. Hypertension. 5. Rule out Limestone's chorea. RECOMMENDATION: Will continue inpatient psychiatric hospitalization for treatment of his depressive symptoms and anxiety. Patient did sign voluntarily. Suicide precautions with 15-minute checks. I will start him on Cymbalta for depression and his chronic pain. Will consult Physical Therapy to evaluate his gait and to follow up. Also will consult Neurology to rule out Siddhartha's chorea and to evaluate him regarding his neuropathy Social Work will meet with the patient to complete psychosocial assessment. Will monitor him for safety and encourage him to participate in the milieu. Length of stay 5 to 7 days. MTDD
[2016-12-12 19:59] LABS: Glucose,Whole Blood 130 mg/dL (75-99)
--- NOTE | 2016-12-12 20:34 | P.CNNES ---
History of Present Illness Consult date: 12/12/16 History of Present Illness: The patient is a 51-year-old right-handed white male was admitted to the hospital because of overdose. He states he took 9025 mg Benadryl pills intentionally. He states he changed his mind about it and called 911 later. He has a history of suicidal ideation in the past. The patient has family members who've had Siddhartha's disease. He had a father who in his 50s of Cazenovia's disease in a brother who in his 40s of Siddhartha's disease. Neurology was called to evaluate regarding Cazenovia's disease. Next The patient gives a history of noncompliance with medications. He has a long- standing history of diabetes but states he stopped taking his medications 2 years ago. He also has a history of hypertension but stopped taking medications for this. He has a history of diabetic neuropathy and apparently had a recent evaluation last fall with an EMG just showed neuropathy as well as lumbar radiculopathy. He states that as a result he has been using a cane at home and he has been unsteady with his neuro neuropathy. He has a history of degenerative disc disease in the lumbar as well as cervical and thoracic spine. Next The patient does have headaches but has never been diagnosed formally. He states that he did stop taking his blood pressure medications however. He had a CT of the brain during this admission which was normal. The patient denies any choreaform movements. He does have occasional tic-like movements. He does have a history of long-standing depression. Review of Systems Constitutional: Denies chills, Denies fever Eyes: denies blurred vision, denies pain Ears, nose, mouth and throat: Denies headache, Denies sore throat Cardiovascular: Denies chest pain, Denies shortness of breath Respiratory: Denies cough Gastrointestinal: Denies abdominal pain, Denies diarrhea, Denies nausea, Denies vomiting Musculoskeletal: Denies myalgias Integumentary: Denies pruritus, Denies rash Neurological: Denies numbness, Denies weakness Psychiatric: Denies anxiety, Denies depression Endocrine: Denies fatigue, Denies weight change Past Medical History Past Medical History: Asthma, Diabetes Mellitus, Hearing Disorder / Deafness, Hyperlipidemia, Hypertension, Osteoarthritis (OA) Additional Past Medical History / Comment(s): Numerous back problems and pain, Neuropathy. History of Any Multi-Drug Resistant Organisms: None Reported Past Surgical History: Unable to Obtain Additional Past Surgical History / Comment(s): Hemilaminectomy-2012 Past Anesthesia/Blood Transfusion Reactions: No Reported Reaction Past Psychological History: ADD/ADHD, Depression Smoking Status: Current every day smoker Past Alcohol Use History: None Reported Past Drug Use History: None Reported - Past Family History Brother(s) Additional Family Medical History / Comment(s): 1 Brother at the age of 5353 years old as result of ESRD. Another brother at the age of 4343 years old from Huntingtons' disease. His middle brother is still alive at the age of 60 with no medical problems. Sister(s) Additional Family Medical History / Comment(s): Patient's sister is alive at the age of 6161 years old with plantar fascia. Mother Family Medical History: Cancer Additional Family Medical History / Comment(s): Patient's mother at the age of 8888 years old from cancer. Father Family Medical History: Cancer, Diabetes Mellitus, Hyperlipidemia, Hypertension Additional Family Medical History / Comment(s): Patient's father also had Cazenovia's disease at the age of 6868 years old. Medications and Allergies Home Medications Medication Instructions Recorded Confirmed Type No Known Home Medications [No 12/11/16 12/11/16 History Known Home Medications] Allergies Allergy/AdvReac Type Severity Reaction Status Date / Time No Known Allergies Allergy Verified 12/11/16 18:39 Physical Examination - Vital Signs Vital Signs: Vital Signs Temp Pulse Resp BP 12/12/16 07:00 98.6 F 80 16 146/80 12/11/16 21:35 99.4 F Intake and Output 12/12/16 12/12/16 12/12/16 06:59 14:59 22:59 Other: Weight 97.069 kg Patient Weight 12/13/16 06:59 Weight 97.069 kg - Constitutional General appearance: average body habitus - EENT EENT: PERRL, hearing intact, vision intact - Respiratory Respiratory: lungs clear - Cardiovascular Cardiovascular: regular rate, normal S1, normal S2 - Integumentary Integumentary: normal - Neurologic Mental status he was awake alert and oriented there was no aphasia or dysarthria Cranial nerve examination: PERRL, EOMI, VFF, face symmetric, tongue midline Speech examination: intact Detailed motor examination: grossly full strength in all extremities Detailed sensory examination: other (Decreased sensation both legs) - Psychiatric Psychiatric: depressed Results - Laboratory Findings CBC and BMP: 12/12/16 09:11 Abnormal Lab Findings: Abnormal Labs 12/11/16 12/12/16 12/12/16 20:19 06:34 09:11 WBC 11.3 H Neutrophils # 9.1 H POC Glucose (mg/dL) 222 H 283 H 12/12/16 12/12/16 12/12/16 12:13 17:05 19:57 WBC Neutrophils # POC Glucose (mg/dL) 145 H 126 H 130 H Assessment and Plan (1) Depression Status: Acute Code(s): F32.9 - MAJOR DEPRESSIVE DISORDER, SINGLE EPISODE, UNSPECIFIED (2) Diabetic neuropathy Status: Chronic Code(s): E11.40 - TYPE 2 DIABETES MELLITUS WITH DIABETIC NEUROPATHY, UNSP (3) Lumbar degenerative disc disease Status: Chronic Code(s): M51.36 - OTHER INTERVERTEBRAL DISC DEGENERATION, LUMBAR REGION (4) Family history of Siddhartha's disease Status: Acute Code(s): Z82.0 - FAMILY HISTORY OF EPILEPSY AND OTH DIS OF THE NERVOUS SYS Plan: The patient is a 51-year-old man with history of neuropathy and lumbar disc disease. He has been having some falls at home because of increasing numbness in his legs and he has been followed by orthopedic surgeons in [place]. He states he was given a cane as well as and he had an EMG which confirmed the diagnosis of neuropathy and lumbar radiculopathy. He had a CT of the brain in the emergency room which was unremarkable For age-related atrophy and small vessel disease. He is admitted to the hospital with suicide attempt. He has a family history of Cazenovia's disease. The patient was advised that he could be evaluated further at a tertiary center for complete genetic testing as well as counseling and blood testing for Cazenovia's disease. He states he did not wish to have any testing in the past but would now consider it. Patient states he will think about this.
--- NOTE | 2016-12-12 21:50 | CONS ---
DATE OF CONSULTATION: REASON FOR CONSULTATION: Medical clearance of hypertension, diabetes mellitus. Patient is a 51-year-old gentleman was recently discharged from my service after he was treated for Benadryl overdose and patient is clinically doing well and patient is still quite depressed. 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 Patient was started Lantus overnight. I discontinued Lantus and patient will be continued on sliding scale insulin. We will start him on metformin twice a day. We will monitor his blood sugars twice a day. Patient has minimally elevated blood pressure because of ( ) property. Patient was also started on Lisinopril low dose and we will monitor his blood sugars as well. REVIEW OF SYSTEMS: CONSTITUTIONAL: No fever, no malaise, no fatigue. HEENT: No recent visual problems or hearing problems. Denied any sore throat. CARDIOVASCULAR: No chest pain, orthopnea, PND, no palpitations, no syncope. PULMONARY: No shortness of breath, no cough, no hemoptysis. GASTROINTESTINAL: No diarrhea, no nausea, no vomiting, no abdominal pain. Normoactive bowel sounds. NEUROLOGICAL: No headaches, no weakness, no numbness. HEMATOLOGICAL: Denies any bleeding or petechiae. GENITOURINARY: Denies any burning micturition, frequency, or urgency. MUSCULOSKELETAL/RHEUMATOLOGICAL: Denies any joint pain, swelling, or any muscle pain. ENDOCRINE: Denies any polyuria or polydipsia. PSYCHIATRIC. As mentioned above patient is still severely depressed. The rest of the 14 point review of systems is negative. PAST MEDICAL HISTORY: Significant for diabetes mellitus, hyperlipidemia, hypertension, ADD/ ADHD, depression. SOCIAL HISTORY: The patient does smoke. Denied any alcohol abuse or drug abuse. FAMILY HISTORY: Significant for type 2 diabetes mellitus. PHYSICAL EXAMINATION: VITAL SIGNS: Temperature 98.6, pulse of 80, respiratory rate 16, blood pressure is 146/80, saturating at 94% on room air. GENERAL: The patient is alert and oriented x3, not in any acute distress. Well developed, well nourished. HEENT: Pupils are round and equally reacting to light. EOMI. No scleral icterus. No conjunctival pallor. Normocephalic, atraumatic. No pharyngeal erythema. No thyromegaly. CARDIOVASCULAR: S1 and S2 present. No murmurs, rubs, or gallops. PULMONARY: Chest is clear to auscultation, no wheezing or crackles. ABDOMEN: Soft, nontender, nondistended, normoactive bowel sounds. No palpable organomegaly. MUSCULOSKELETAL: No joint swelling or deformity. EXTREMITIES: No cyanosis, clubbing, or pedal edema. NEUROLOGICAL: Gross neurological examination did not reveal any focal deficits. SKIN: No rashes. LABORATORY DATA: CBC, CMP are abnormal for elevated WBC count of 11,300. ( ) 1.3. ASSESSMENT AND PLAN: 1. Severe depression with recent suicide attempt, management as per primary services. 2. Type 2 diabetes mellitus. Patient will be started on metformin twice a day and blood sugar management/monitoring. 3. Hypertension. Patient was started on Lisinopril, lipid panel is not available at this point of time. Thank you for letting me participate in this patient's care. We will continue to follow patient on an as-needed basis only.
[2016-12-13] MEDS: IBUPROFEN 400 MG TAB PO PRN ×3 (04:00→21:10)
[2016-12-13 05:57] LABS: Glucose,Whole Blood 197 mg/dL (75-99)
[2016-12-13] MEDS: INSULIN LISPRO (humaLOG) 300 UNIT/3 ML VIAL SQ SCH ×4 (08:10→20:14)
[2016-12-13] MEDS: PANTOPRAZOLE 40 MG TABLET PO SCH ×2 (08:43→16:45)
[2016-12-13] MEDS: metFORMIN 500 MG TAB PO SCH ×2 (08:43→16:45)
[2016-12-13] MEDS: LISINOPRIL 5 MG TAB PO SCH (08:44)
[2016-12-13] MEDS ORDERED: DULoxetine HCL 30 MG CAPSULE.DR PO SCH (09:00)
--- NOTE | 2016-12-13 11:52 | P.PN ---
Progress Note - Text Interval history: I reviewed records and nursing notes and I saw the patient , he reports that he had trouble falling asleep last night as he was ruminating about ongoing stressor especially declining of his physical health and lacking support ,he said "I Was working as [employer] for 30 years ,now I do feel useless ",patient talked about his suicidal attempt prior to his admission as he felt hopeless and helpless ,"I DO NOT WANT TO BE BURDEN ON ANYONE" I reviewed medical consultation :patient started on low dose of ZESTRIL I reviewed Neurology consult DR LEE:patient has severe Neuropathy and Lumbar radiculopathy ,he did recommend that patient to follow-up with tertiary center for genetic studies to rule out Siddhartha's disease. VITALS:Temp:98.4,Pulse :76,resp.18 ,BP :147/77 BLOOD GLUCOSE :197 Mental status exam: The patient is alert on wheel chair, eye contact is intermittent. He is dressed in hospital gown ,he was tearful when talking about lacking support and not able to walk as before . He denies auditory hallucinations , ,no idea of reference or thought insertion,he endorses depressive symptoms especially feeling of hopeless and helpless He reports no suicidal ideation intent or plan or any homicidal ideation intent or plan. . Plan:Will increase Cymbalta .add low dose of Elavil for pain and sleep,start Neurontin for his Neuropathy and gradually will titrate it ,PT consult is still pending ,encourage participation in milieu,monitor his Vitals and Blood Glucose
[2016-12-13 13:04] LABS: Glucose,Whole Blood 225 mg/dL (75-99)
[2016-12-13] MEDS: GABAPENTIN 100 MG CAP PO SCH ×2 (16:45→21:11)
[2016-12-13 18:08] LABS: Glucose,Whole Blood 153 mg/dL (75-99)
[2016-12-13 20:11] LABS: Glucose,Whole Blood 127 mg/dL (75-99)
[2016-12-13] MEDS: AMITRIPTYLINE HCL 25 MG TAB PO SCH (21:11)
[2016-12-14 06:22] LABS: Glucose,Whole Blood 230 mg/dL (75-99)
[2016-12-14] MEDS: PANTOPRAZOLE 40 MG TABLET PO SCH ×2 (08:03→16:19)
[2016-12-14] MEDS: GABAPENTIN 100 MG CAP PO SCH ×3 (08:03→20:57)
[2016-12-14] MEDS: LISINOPRIL 5 MG TAB PO SCH (08:03)
[2016-12-14] MEDS: metFORMIN 500 MG TAB PO SCH ×2 (08:03→16:19)
[2016-12-14] MEDS: INSULIN LISPRO (humaLOG) 300 UNIT/3 ML VIAL SQ SCH ×4 (08:03→20:10)
[2016-12-14] MEDS: DULoxetine HCL 60 MG CAPSULE.DR PO SCH (08:03)
[2016-12-14 12:29] LABS: Glucose,Whole Blood 201 mg/dL (75-99)
[2016-12-14] MEDS: IBUPROFEN 400 MG TAB PO PRN (12:44)
[2016-12-14 16:54] LABS: Glucose,Whole Blood 227 mg/dL (75-99)
--- NOTE | 2016-12-14 17:16 | P.PN ---
Progress Note - Text SUBJECTIVE: I reviewed the medical record and interviewed Mr. Jensen. He is a 51-year-old male with history of diabetes and chronic back pain. He presented to [facility] emergently following an overdose of Benadryl. We consulted while he was in ICU and recommended transfer to the psychiatric unit once medically stable. He describes a history depression and worsening symptoms of depression prior to his overdose. His family is significant for Siddhartha's disease. He reported feeling less depressed, hopeless and helpless than prior to admission. He has intermittent thoughts of suicide were he wishes that he were or that he wishes he were not alive anymore. He denied specific suicidal intent or plan. He is concerned about his physical health and described increasing disability as a result of his medical illnesses including impairment in gait, balance and frequent falling. OBJECTIVE: He presented as a disheveled appearing 51-year-old male wearing hospital gown. He was in a wheelchair. He is pleasant on approach and maintained eye contact. He had a depressed facial expression. He was alert and oriented to person, place and time. He had psychomotor retardation and episodic involuntary movements of his arms and legs. His speech was dysarthric with decreased rate, rhythm and volume. His affect was depressed and not reactive. He describes suicidal ideation and wishes. He denied homicidal ideation. He has depressive cognitions including hopelessness, helplessness and worthlessness. He ruminated about his physical health and disability. He did not express phobias, ideas reference or paranoid ideation. His thinking was abstract and associations were coherent and logical. He denied hallucinations and did not appear to be responding to internal stimuli. Neurology and PT consults appreciated ASSESSMENT: Appendectomy as continued symptoms of depression and passive suicidal thoughts. He has multiple medical problems resulting in increasing disability and impairment. PLAN:Continue inpatient psychiatric hospitalization. Continue suicide precautions with 15 minute checks. Continue Elavil 25 mg at bedtime and Cymbalta 60 mg daily. Continue Humalog per sliding scale, Neurontin 100 mg 3 times a day for peripheral neuropathy, Glucophage 500 mg twice a day and Protonix 40 mg twice a day. Continue use of a wheelchair until he is fully trained with the walker. Encourage participation in therapeutic groups and activities. Evaluate clinical status and response to treatment daily basis.
[2016-12-14 20:07] LABS: Glucose,Whole Blood 166 mg/dL (75-99)
[2016-12-14] MEDS: AMITRIPTYLINE HCL 25 MG TAB PO SCH (20:57)
[2016-12-15] MEDS: IBUPROFEN 400 MG TAB PO PRN ×2 (05:20→16:00)
[2016-12-15 06:54] LABS: Glucose,Whole Blood 255 mg/dL (75-99)
[2016-12-15] MEDS: INSULIN LISPRO (humaLOG) 300 UNIT/3 ML VIAL SQ SCH ×4 (08:06→20:45)
[2016-12-15] MEDS: GABAPENTIN 100 MG CAP PO SCH ×3 (08:10→20:48)
[2016-12-15] MEDS: DULoxetine HCL 60 MG CAPSULE.DR PO SCH (08:10)
[2016-12-15] MEDS: LISINOPRIL 5 MG TAB PO SCH (08:11)
[2016-12-15] MEDS: PANTOPRAZOLE 40 MG TABLET PO SCH ×2 (08:12→17:53)
[2016-12-15] MEDS: metFORMIN 500 MG TAB PO SCH ×2 (08:12→17:54)
[2016-12-15 12:35] LABS: Glucose,Whole Blood 245 mg/dL (75-99)
--- NOTE | 2016-12-15 13:27 | P.PN ---
Progress Note - Text SUBJECTIVE: I reviewed the medical record and interviewed Mr. Jensen. He continues feel concerned about his health and his ability to function independently. He talked about his fear of falling and numbness in hands and feet. He denied suicidal thoughts or wishes but commented "I don't know what I would do if I were to leave the hospital"suggesting that he is at risk for overdose if he were to be discharged. He denied psychotic symptoms such as auditory or visual hallucinations, ideas reference, thought insertion, thought broadcasting or thought control. We talked about his family history of Bloomingdale's disease. His brother, his father, his paternal grandmother and a cousin had this disease. He has not had genetic testing. He reports no falls but he feels uncomfortable using a wheeled walker. OBJECTIVE: He presented as a disheveled appearing 51-year-old male wearing hospital gown. He was in a wheelchair. He is pleasant on approach and maintained eye contact. He had a depressed facial expression. He was alert and oriented to person, place and time. He had psychomotor retardation and intermittent choreiform movements of his arms and legs. His speech was dysarthric with decreased rate, rhythm and volume. His affect was depressed and not reactive. He describes suicidal ideation and wishes. He denied homicidal ideation. He has depressive cognitions including hopelessness, helplessness and worthlessness. He ruminated about his physical health and disability. He did not express phobias, ideas reference or paranoid ideation. His thinking was abstract and associations were coherent and logical. He denied hallucinations and did not appear to be responding to internal stimuli. ASSESSMENT: He continues symptoms of depression but is reluctant to discuss his suicidal thoughts.. He has multiple medical problems resulting in increasing disability and impairment and is demonstrating choreiform movements. I suspect that he is showing early signs of Bloomingdale's disease. PLAN: Continue inpatient psychiatric hospitalization. Referr to a tertiary hospital for a comprehensive neurological evaluation. Continue suicide precautions with 15 minute checks. Continue Elavil 25 mg at bedtime and Cymbalta 60 mg daily. Continue Humalog per sliding scale, Neurontin 100 mg 3 times a day for peripheral neuropathy, Glucophage 500 mg twice a day and Protonix 40 mg twice a day. Continue use of a wheelchair until he is fully trained with the walker. Encourage participation in therapeutic groups and activities. Evaluate clinical status and response to treatment daily basis.
[2016-12-15 17:03] LABS: Glucose,Whole Blood 234 mg/dL (75-99)
[2016-12-15] MEDS: ACETAMINOPHEN TAB 325 MG TAB PO PRN (17:55)
[2016-12-15 20:44] LABS: Glucose,Whole Blood 186 mg/dL (75-99)
[2016-12-15] MEDS: AMITRIPTYLINE HCL 25 MG TAB PO SCH (20:45)
[2016-12-16 06:30] LABS: Glucose,Whole Blood 209 mg/dL (75-99)
[2016-12-16] MEDS: metFORMIN 500 MG TAB PO SCH ×2 (08:15→17:45)
[2016-12-16] MEDS: DULoxetine HCL 60 MG CAPSULE.DR PO SCH (08:15)
[2016-12-16] MEDS: PANTOPRAZOLE 40 MG TABLET PO SCH ×2 (08:15→17:26)
[2016-12-16] MEDS: LISINOPRIL 5 MG TAB PO SCH (08:16)
[2016-12-16] MEDS: GABAPENTIN 100 MG CAP PO SCH (08:16)
[2016-12-16] MEDS: INSULIN LISPRO (humaLOG) 300 UNIT/3 ML VIAL SQ SCH ×4 (08:17→20:46)
[2016-12-16 12:20] LABS: Glucose,Whole Blood 193 mg/dL (75-99)
--- NOTE | 2016-12-16 16:51 | P.PN ---
Progress Note - Text INTERVAL HISTORY: Patient came to my office asking to talk to me ,he was walking on his walker . He continues feel concerned about his health and his ability to function independently. He talked about feeling lonely ,no support system ,stated that he moved to [facility] last JUNE to be close to his daughter but she moved to [place] 3-4 months ago. He denied suicidal thoughts or wishes but he stated that he does not feel ready to be discharged , feeling more confused since started Neurontin ,his pain has been worse since started to use walker ,rates his pain 7/10 ,10 being the worse,he rates his depression 7 or 8/10 ,. He denied psychotic symptoms such as auditory or visual hallucinations, ideas reference, thought insertion, thought broadcasting or thought control. Per NURSING STAFF:patient slept 6-7 hours ,compliant with treatment and groups BLOOD GLUCOSE:193 VITALS:Temp:98.4 ,Pulse:86 ,Resp:18 ,BP:169/89 MENTAL EXAM:: He presented as a disheveled caucassian male wearing hospital gown. He was walking with walker. He is pleasant on approach and maintained eye contact. He had a depressed facial expression. He was alert and oriented to person, place and time. His speech was coherent with decreased rate, rhythm and volume. His affect was depressed and not reactive. He describes suicidal ideation and wishes. He denied homicidal ideation. He has depressive cognitions including hopelessness, helplessness and worthlessness. He ruminated about his physical health and disability. He did not express , ideas reference or paranoid ideation. His thinking was abstract and associations were coherent and logical. He denied hallucinations and did not appear to be responding to internal stimuli. PLAN: Continue inpatient psychiatric hospitalization. Increase Cymbalta , discontinue Neurontin for now ,reconsult regading his blood glucose and BP Evaluate clinical status and response to treatment daily basis.
[2016-12-16 17:29] LABS: Glucose,Whole Blood 231 mg/dL (75-99)
[2016-12-16 20:14] LABS: Glucose,Whole Blood 189 mg/dL (75-99)
[2016-12-16] MEDS: AMITRIPTYLINE HCL 25 MG TAB PO SCH (20:50)
[2016-12-16] MEDS: HYDROcodone/APAP 5-325MG 1 EACH TAB PO PRN (20:51)
[2016-12-16] MEDS: LORazepam 1 MG TAB PO PRN (20:51)
[2016-12-17 06:32] LABS: Glucose,Whole Blood 209 mg/dL (75-99)
[2016-12-17] MEDS: LISINOPRIL 5 MG TAB PO SCH (08:53)
[2016-12-17] MEDS: DULoxetine HCL 30 MG CAPSULE.DR PO SCH (08:54)
[2016-12-17] MEDS: PANTOPRAZOLE 40 MG TABLET PO SCH ×2 (08:54→18:34)
[2016-12-17] MEDS: metFORMIN 500 MG TAB PO SCH ×2 (08:54→18:32)
[2016-12-17] MEDS: INSULIN LISPRO (humaLOG) 300 UNIT/3 ML VIAL SQ SCH ×4 (08:55→21:25)
--- NOTE | 2016-12-17 09:03 | PN ---
I was asked to re-evaluate the patient because of continued elevation of blood sugars and patient was on metformin. I increased the dose yesterday. I am adding linagliptin at this point of time. REVIEW OF SYSTEMS: CARDIOVASCULAR: No chest pain, no orthopnea, no PND, no palpitations. PULMONARY: Denied any shortness of breath. No cough or hemoptysis. GASTROINTESTINAL: No diarrhea, nausea or vomiting. No abdominal pain. Normoactive bowel sounds. NEUROLOGIC: No headaches, no weakness, no numbness. BRIEF EXAM ON THE PATIENT: Patient's vital signs are stable. PHYSICAL EXAMINATION: Vital signs are stable and the patient's blood pressure is stable as well. Patient was started on lisinopril for diabetes mellitus. Patient is on sliding scale insulin ( ). Lungs are clear to auscultation. Chest S1 and S2 present. FINAL DIAGNOSES: Elevated blood sugars, will add linagliptin to his regimen. No further recommendations. Continue with lisinopril for hypertension. Will continue to follow the patient on an as-needed basis.
[2016-12-17 12:35] LABS: Glucose,Whole Blood 212 mg/dL (75-99)
[2016-12-17] MEDS: LINAGLIPTIN 5 MG TABLET PO SCH (12:35)
[2016-12-17] MEDS: HYDROcodone/APAP 5-325MG 1 EACH TAB PO PRN ×2 (13:52→21:23)
--- NOTE | 2016-12-17 14:56 | P.PN ---
Progress Note - Text INTERVAL HISTORY: I saw patient and discussed his case in treatment team ,our SW did contact his daughter who informed us that patient has had anger outburst and mood swings. when I talked to patient about this he said ""I WAS HOLDING EVERYTHING IN TILL I EXPLODE", he talked about what triggered his suicidal attempt as he has been estranged from his siblings for 2 years ,since mother but he received phone call from brother prior to OD accusing him of stealing money from mother when he was taking care of her He continues feel concerned about his health and his ability to function independently. He talked about feeling lonely ,no support system ,He denied suicidal thoughts or wishes but he stated that he does not feel ready to be discharged , feeling more confused since started Neurontin ,his pain has been worse since started to use walker ,rates his pain 8/10 ,10 being the worse,he rates his depression 7 or 8/10 ,. He denied psychotic symptoms such as auditory or visual hallucinations, ideas reference, thought insertion, thought broadcasting or thought control. Per NURSING STAFF:patient slept 6-7 hours ,compliant with treatment and groups MENTAL EXAM:: He presented as a disheveled caucassian male wearing hospital gown. He was walking with walker. He is pleasant on approach and maintained eye contact. He had a depressed facial expression. He was alert and oriented to person, place and time. His speech was coherent with decreased rate, rhythm and volume. His affect was depressed and not reactive. He describes feeling helpless but denies active suicidal ideation or wishes. He denied homicidal ideation. He ruminated about his physical health and disability. He did not express , ideas reference or paranoid ideation. His thinking was abstract and associations were coherent and logical. He denied hallucinations and did not appear to be responding to internal stimuli. PLAN: Continue inpatient psychiatric hospitalization. Increase Cymbalta , continue PRN Mecca ,restart Neurontin as mood stabilizer and for pain , discussed transfer to physical rehab when mentally stable ,patient agreed
--- NOTE | 2016-12-17 15:15 | XR ---
EXAMINATION TYPE: XR chest 2V DATE OF EXAM: 12/17/2016 3:10 PM HISTORY: rule out pneumonia. REFERENCE: NONE. FINDINGS: The lungs are clear. Pleural space are clear. Heart size upper limits of normal. IMPRESSION: NO ACTIVE INTRATHORACIC DISEASE.
[2016-12-17] MEDS: GABAPENTIN 100 MG CAP PO SCH ×2 (17:21→22:40)
[2016-12-17 17:29] LABS: Glucose,Whole Blood 146 mg/dL (75-99)
[2016-12-17 20:26] LABS: Glucose,Whole Blood 198 mg/dL (75-99)
[2016-12-17] MEDS: AMITRIPTYLINE HCL 25 MG TAB PO SCH (21:23)
[2016-12-17] MEDS: LORazepam 1 MG TAB PO PRN (21:30)
[2016-12-18 06:13] LABS: Glucose,Whole Blood 192 mg/dL (75-99)
[2016-12-18] MEDS: INSULIN LISPRO (humaLOG) 300 UNIT/3 ML VIAL SQ SCH ×5 (08:48→20:41)
[2016-12-18] MEDS: LISINOPRIL 5 MG TAB PO SCH (08:55)
[2016-12-18] MEDS: PANTOPRAZOLE 40 MG TABLET PO SCH ×2 (08:55→17:34)
[2016-12-18] MEDS: GABAPENTIN 100 MG CAP PO SCH ×3 (08:55→21:05)
[2016-12-18] MEDS: DULoxetine HCL 30 MG CAPSULE.DR PO SCH (08:55)
[2016-12-18] MEDS: LINAGLIPTIN 5 MG TABLET PO SCH (08:55)
[2016-12-18] MEDS: metFORMIN 500 MG TAB PO SCH ×2 (08:56→17:34)
[2016-12-18] MEDS: HYDROcodone/APAP 5-325MG 1 EACH TAB PO PRN ×4 (08:57→22:10)
[2016-12-18 12:51] LABS: Glucose,Whole Blood 196 mg/dL (75-99)
--- NOTE | 2016-12-18 15:02 | P.CONS ---
History of Present Illness - Chief Complaint gait disturbance - History of Present Illness I had the opportunity to see patient for inpatient rehab consultation with regard to gait disturbance. He was admitted to [facility] December 11 status post suicide attempt. Seen by neurology who notes diabetic neuropathy, lumbar disc disease and family history of [place].chest x-ray done and negative. PT reports supervision for functional mobility including gait 40 feet with roller walker. OT reports supervision for upper dressingand toileting. Minimal assistance for lower dressing, bathing, functional debility transfers.patient reports that he is independent in room with bathroom privileges.patient describes long-standing dorsal back pain. Previous functional history, as elicited from patient: 51-year-old right-handed white male who is lives in a trailer home, alone. Smokes a pack per day but denies alcohol or recreational drugs. Is on disability due to chronic dorsal back pain. Describes independent with own cooking, laundry, minimal driving, tub bath and gait with quad cane. Note that he is due to area for the last 8 months or so, moved area to be closer to daughter who lives in [facility]. Family history of father with hypertension, cardiac disease in [facility] Review of Systems Review of systems: ENT: Denies sneezes or discharge. Eyes: Denies discharge or photophobia. Cardiac: Denies chest pain or palpitation. Pulmonary: Denies cough or shortness of breath. Gastrointestinal: Denies nausea, emesis, constipation, diarrhea. Genitourinary: Denies discharge or frequency. Musculoskeletal: chronic dorsal back pain. Neurologic: Denies motor or sensory change.in fact, reports independent in room with bathroom privileges. Endocrine: Denies shakes or sweats. Oncology: Denies cancers. Dermatologic: Denies rash, itching, pruritus. ALLERGY/immunology: Denies sneezes, rashes. Past Medical History Past Medical History: Asthma, Diabetes Mellitus, Hearing Disorder / Deafness, Hyperlipidemia, Hypertension, Osteoarthritis (OA) Additional Past Medical History / Comment(s): Numerous back problems and pain, Neuropathy. History of Any Multi-Drug Resistant Organisms: None Reported Past Surgical History: Unable to Obtain Additional Past Surgical History / Comment(s): Hemilaminectomy-2012 Past Anesthesia/Blood Transfusion Reactions: No Reported Reaction Past Psychological History: ADD/ADHD, Depression Smoking Status: Current every day smoker Past Alcohol Use History: None Reported Past Drug Use History: None Reported - Past Family History Brother(s) Additional Family Medical History / Comment(s): 1 Brother at the age of 5353 years old as result of ESRD. Another brother at the age of 4343 years old from Huntingtons' disease. His middle brother is still alive at the age of 60 with no medical problems. Sister(s) Additional Family Medical History / Comment(s): Patient's sister is alive at the age of 6161 years old with plantar fascia. Mother Family Medical History: Cancer Additional Family Medical History / Comment(s): Patient's mother at the age of 8888 years old from cancer. Father Family Medical History: Cancer, Diabetes Mellitus, Hyperlipidemia, Hypertension Additional Family Medical History / Comment(s): Patient's father also had Siddhartha's disease at the age of 6868 years old. Medications and Allergies Home Medications Medication Instructions Recorded Confirmed Type No Known Home Medications [No 12/11/16 12/11/16 History Known Home Medications] Allergies Allergy/AdvReac Type Severity Reaction Status Date / Time No Known Allergies Allergy Verified 12/11/16 18:39 Physical Exam Vitals: Vital Signs Pulse Resp BP 12/17/16 21:28 92 16 125/69 Skin: Good color, texture, turgor. General: Medium build and comfortable appearance. Head: Normocephalic, atraumatic. Eyes: Symmetric. Pupils equal round. Ears: Symmetric. Hearing within normal limits. Mouth: Clear. Neck: Supple. Carotid without bruit. Cardiac: Regular rate and rhythm. Lungs: Clear anteriorly and posteriorly. Abdomen: Soft active nontender. Extremities: Normal tone. Neurological: Mental status: Alert, cooperative, pleasant. Cranial nerves: Symmetric facial tone and trapezius. Motor: Normal strength and isolation all 4 limbs. Sensation: Intact throughout. DTRs: Symmetric and equal throughout. Mobility: Sits and stands with standby assistance but no verbal cueing or loss of balance.note patient seen and he was in wheelchair. Results CBC & Chem 7: 12/12/16 09:11 Labs: Abnormal Lab Results - Last 24 Hours (Table) 12/17/16 12/17/16 12/18/16 Range/Units 17:24 20:25 06:10 POC Glucose (mg/dL) 146 H 198 H 192 H (75-99) mg/dL 12/18/16 Range/Units 12:46 POC Glucose (mg/dL) 196 H (75-99) mg/dL Chest x-ray: report reviewed (negative.) Assessment and Plan (1) Lumbar degenerative disc disease Status: Chronic Plan: impression: 1. Walking difficulty. 2. Dorsal back pain. 3. Lumbar disc disease. 4. Diabetes with complication neuropathy. 5. Family history of [place]. 6. Hypertension. 7. Dyslipidemia. 8. History of asthma. 9. Coleen arthritis. 10. Hard of hearing. Comments and plan: At this time PT and OT are ongoing. PT reports supervision only for mobility including gait 40 feet with roller walker. OT does report safety concerns with regard to minimal assistance for lower dressing, bathing, functional mobility. Inpatient rehab criteria over her for multiple to some for a team approach, that is more than 1 therapy need. Patient currently demonstrated only OT knee. Thus may be too good for inpatient rehab.'s suggesting subacute placement currently. We'll follow closely with you.
[2016-12-18 16:55] LABS: Glucose,Whole Blood 126 mg/dL (75-99)
--- NOTE | 2016-12-18 17:19 | P.PN ---
Progress Note - Text INTERVAL HISTORY: I saw patient and discussed his case in treatment team , He continues feel concerned about his health and his ability to function independently. He talked about feeling lonely ,no support system ,He denied suicidal thoughts or wishes but he stated that he does not feel ready to be discharged ,,his pain has been worse since started to use walker ,rates his pain 8/10 ,10 being the worse,he rates his depression 7 or 8/10 ,. He denied psychotic symptoms such as auditory or visual hallucinations, ideas reference, thought insertion, thought broadcasting or thought control. I REVIEWED OT CONSULT AND DR BROWNE CONSULT MENTAL EXAM:: He presented as a disheveled caucassian male wearing hospital gown. He was walking with walker. He is pleasant on approach and maintained eye contact. He had a depressed facial expression. He was alert and oriented to person, place and time. His speech was coherent with decreased rate, rhythm and volume. His affect was depressed and not reactive. He describes feeling helpless but denies active suicidal ideation or wishes. He denied homicidal ideation. He ruminated about his physical health and disability. He did not express , ideas reference or paranoid ideation. His thinking was abstract and associations were coherent and logical. He denied hallucinations and did not appear to be responding to internal stimuli. PLAN: Continue inpatient psychiatric hospitalization.,continue current medications ,DR BROWNE recommending subacute rehab, ,SW to facilitate transfer when patient is mentally stable
[2016-12-18 19:59] LABS: Glucose,Whole Blood 122 mg/dL (75-99)
[2016-12-18] MEDS: AMITRIPTYLINE HCL 25 MG TAB PO SCH (21:05)
[2016-12-18] MEDS: LORazepam 1 MG TAB PO PRN (22:10)
[2016-12-19 06:12] LABS: Glucose,Whole Blood 146 mg/dL (75-99)
[2016-12-19] MEDS: INSULIN LISPRO (humaLOG) 300 UNIT/3 ML VIAL SQ SCH ×7 (08:11→20:20)
[2016-12-19] MEDS: PANTOPRAZOLE 40 MG TABLET PO SCH ×2 (08:28→18:01)
[2016-12-19] MEDS: LISINOPRIL 5 MG TAB PO SCH (08:29)
[2016-12-19] MEDS: HYDROcodone/APAP 5-325MG 1 EACH TAB PO PRN ×3 (08:29→20:24)
[2016-12-19] MEDS: DULoxetine HCL 30 MG CAPSULE.DR PO SCH (08:29)
[2016-12-19] MEDS: metFORMIN 500 MG TAB PO SCH ×2 (08:29→18:01)
[2016-12-19] MEDS: LINAGLIPTIN 5 MG TABLET PO SCH (08:29)
[2016-12-19] MEDS: GABAPENTIN 100 MG CAP PO SCH ×3 (08:29→20:22)
[2016-12-19 13:00] LABS: Glucose,Whole Blood 138 mg/dL (75-99)
--- NOTE | 2016-12-19 15:23 | P.PN ---
Progress Note - Text INTERVAL HISTORY: I saw patient and discussed his case in treatment team , He continues feel concerned about his health and his ability to function independently. He talked about feeling lonely ,no support system ,He denied suicidal thoughts or wishes but he stated that he does not feel ready to be discharged ,,his pain has been worse since started to use walker ,rates his pain 8/10 ,10 being the worse, He denied psychotic symptoms such as auditory or visual hallucinations, ideas reference, thought insertion, thought broadcasting or thought control. Patient talked about his inability to be active as before ,fear that he will be having -Ritesh "My father from it and he was just 53 years", MENTAL EXAM:: He presented as a disheveled caucassian male wearing hospital gown. He was on wheelchair today due to severe pain. He is pleasant on approach and maintained eye contact. He had a depressed facial expression. He was alert and oriented to person, place and time. His speech was coherent with decreased rate, rhythm and volume. His affect was depressed and not reactive. He describes feeling helpless but denies active suicidal ideation or wishes. He denied homicidal ideation. He ruminated about his physical health and disability. He did not express , ideas reference or paranoid ideation. His thinking was abstract and associations were coherent and logical. He denied hallucinations and did not appear to be responding to internal stimuli. PLAN: Continue inpatient psychiatric hospitalization., ,discussed post discharge placement ,most likely [facility] facility for subacute rehab
[2016-12-19 17:46] LABS: Glucose,Whole Blood 140 mg/dL (75-99)
[2016-12-19 20:08] LABS: Glucose,Whole Blood 146 mg/dL (75-99)
[2016-12-19] MEDS: AMITRIPTYLINE HCL 25 MG TAB PO SCH (20:22)
[2016-12-19] MEDS: LORazepam 1 MG TAB PO PRN (20:25)
[2016-12-20 06:36] LABS: Glucose,Whole Blood 194 mg/dL (75-99)
[2016-12-20] MEDS: PANTOPRAZOLE 40 MG TABLET PO SCH ×2 (08:15→17:43)
[2016-12-20] MEDS: GABAPENTIN 100 MG CAP PO SCH ×3 (08:15→20:19)
[2016-12-20] MEDS: DULoxetine HCL 30 MG CAPSULE.DR PO SCH (08:15)
[2016-12-20] MEDS: LINAGLIPTIN 5 MG TABLET PO SCH (08:15)
[2016-12-20] MEDS: metFORMIN 500 MG TAB PO SCH ×2 (08:15→17:42)
[2016-12-20] MEDS: LISINOPRIL 5 MG TAB PO SCH (08:15)
[2016-12-20] MEDS: INSULIN LISPRO (humaLOG) 300 UNIT/3 ML VIAL SQ SCH ×7 (08:17→20:17)
[2016-12-20] MEDS: HYDROcodone/APAP 5-325MG 1 EACH TAB PO PRN ×3 (08:20→20:59)
--- NOTE | 2016-12-20 12:02 | P.PN ---
Progress Note - Text INTERVAL HISTORY: I saw patient and discussed his case in treatment team , He continues feel concerned about his health and his ability to function independently. He talked about feeling lonely ,no support system ,He denied suicidal thoughts or wishes ,,his pain has been worse since started to use walker ,rates his pain 8/10 ,10 being the worse, He denied psychotic symptoms such as auditory or visual hallucinations, ideas reference, thought insertion, thought broadcasting or thought control. Patient has minimal interaction with staff and other patients,he has been participating in groups but he said "IT IS HARD TO HEAR EVERYONE BECAUSE OF MY HEARING PROBLEM" Patient was evaluated by [facility] staff yesterday and they accepted him ,waiting for [facility] worker to screen him MENTAL EXAM:: He presented as a disheveled caucassian male wearing hospital gown. He was on wheelchair today due to severe pain. He is pleasant on approach and maintained eye contact. He had a depressed facial expression. He was alert and oriented to person, place and time. His speech was coherent with decreased rate, rhythm and volume. His affect was depressed and not reactive. He describes feeling helpless but denies active suicidal ideation or wishes. He denied homicidal ideation. He ruminated about his physical health and disability. He did not express , ideas reference or paranoid ideation. His thinking was abstract and associations were coherent and logical. He denied hallucinations and did not appear to be responding to internal stimuli. PLAN: Continue inpatient psychiatric hospitalization., ,most [facility] after [facility] screen him
[2016-12-20 12:59] LABS: Glucose,Whole Blood 165 mg/dL (75-99)
[2016-12-20 17:38] LABS: Glucose,Whole Blood 115 mg/dL (75-99)
[2016-12-20 19:57] LABS: Glucose,Whole Blood 133 mg/dL (75-99)
[2016-12-20] MEDS: AMITRIPTYLINE HCL 25 MG TAB PO SCH (20:19)
[2016-12-21 07:37] LABS: Glucose,Whole Blood 149 mg/dL (75-99)
[2016-12-21] MEDS: metFORMIN 500 MG TAB PO SCH ×3 (08:01→17:38)
[2016-12-21] MEDS: INSULIN LISPRO (humaLOG) 300 UNIT/3 ML VIAL SQ SCH ×7 (08:01→21:04)
[2016-12-21] MEDS: PANTOPRAZOLE 40 MG TABLET PO SCH ×2 (08:01→17:00)
[2016-12-21] MEDS: GABAPENTIN 100 MG CAP PO SCH (08:39)
[2016-12-21] MEDS: LISINOPRIL 5 MG TAB PO SCH (08:39)
[2016-12-21] MEDS: DULoxetine HCL 30 MG CAPSULE.DR PO SCH (08:39)
[2016-12-21] MEDS: LINAGLIPTIN 5 MG TABLET PO SCH (08:39)
[2016-12-21] MEDS: HYDROcodone/APAP 5-325MG 1 EACH TAB PO PRN ×2 (08:40→17:00)
[2016-12-21 12:26] LABS: Glucose,Whole Blood 155 mg/dL (75-99)
[2016-12-21] MEDS: GABAPENTIN 300 MG CAP PO SCH ×2 (17:00→21:00)
[2016-12-21 17:25] LABS: Glucose,Whole Blood 106 mg/dL (75-99)
--- NOTE | 2016-12-21 19:20 | P.PN ---
Progress Note - Text Date of service: 12/21/2016 Chief complaint: "I feel mad at myself" Subjective: The patient has been seeing today as follow-up, chart reviewed, case discussed with the treatment team. Patient reports still feeling depressed, angry at himself, increased anxiety and depression. The patient reports still has back pain at the midline start from the mid thoracic area to lower coccyx. Patient reports has broken interrupted sleep, but he has average appetite. He denies any suicidal or homicidal ideation. The patient denies any manic symptoms including sustained period of time with elevated or irritable mood. The patient denies any auditory or visual hallucinations. Also the patient denies any paranoid ideation. Review of other systems: Patient denies any physical symptoms besides what has been mentioned above. No problems was presenting no chest pain reported today. Objective: Vitals has been reviewed. Mental status examination; Appearance: The patient appears stated age, disheveled, no specific features. Gait/posture: Unstable gait, Normal arm was swinging: No abnormal movements. Attitude and behavior: engaged, partially cooperative, intermittent eye contact. Motor activity: Decreased psychomotor activity Speech: Soft, low tone, not pressured Mood: Depressed Affect: Constricted Thought form: goal-directed, linear, coherent. Thought content: Non-delusional, passive suicidal thoughts, denies homicidal thoughts, denies intentions or plans. Perception: Denies any auditory or visual hallucinations Attention: No impairment. Patient was able to repeat serial 7. Orientation: Patient patient was fully oriented to time place person and situation. Insight: Patient has limited insight about his psychiatric disorder. Judgment: Patient has limited judgment about his psychiatric treatment. Assessment: Major depressive disorder recurrent, severe. unspecified anxiety disorder. Plan: Increase the Neurontin to 300 mg by mouth 3 times a day to address pain and an anxiety. Increase his Cymbalta to 60 mg by mouth twice a day to address depression and anxiety. Continue current management.
[2016-12-21 20:13] LABS: Glucose,Whole Blood 176 mg/dL (75-99)
[2016-12-21] MEDS: AMITRIPTYLINE HCL 25 MG TAB PO SCH (21:00)
[2016-12-21] MEDS: LORazepam 1 MG TAB PO PRN (21:02)
[2016-12-22 06:39] LABS: Glucose,Whole Blood 152 mg/dL (75-99)
[2016-12-22] MEDS: HYDROcodone/APAP 5-325MG 1 EACH TAB PO PRN ×3 (07:00→20:59)
[2016-12-22] MEDS: LINAGLIPTIN 5 MG TABLET PO SCH (08:10)
[2016-12-22] MEDS: GABAPENTIN 300 MG CAP PO SCH ×3 (08:10→21:00)
[2016-12-22] MEDS: LISINOPRIL 5 MG TAB PO SCH (08:10)
[2016-12-22] MEDS: DULoxetine HCL 60 MG CAPSULE.DR PO SCH ×2 (08:10→20:58)
[2016-12-22] MEDS: PANTOPRAZOLE 40 MG TABLET PO SCH ×2 (08:10→17:47)
[2016-12-22] MEDS: metFORMIN 500 MG TAB PO SCH ×2 (08:10→17:47)
[2016-12-22] MEDS: INSULIN LISPRO (humaLOG) 300 UNIT/3 ML VIAL SQ SCH ×7 (08:11→20:51)
[2016-12-22 12:20] LABS: Glucose,Whole Blood 174 mg/dL (75-99)
[2016-12-22] MEDS: LORazepam 1 MG TAB PO PRN (15:02)
--- NOTE | 2016-12-22 16:45 | P.PN ---
Progress Note - Text Date of service: 12/22/2016 Chief complaint: "I am feeling little edgy and anxious" Subjective: The patient has been seen today as follow-up, chart reviewed, case discussed with the treatment team. Today, patient minimized his depression, but still feeling hopeless. Patient denies suicidal or homicidal thoughts. She reports increased anxiety and he couldn't address any specific reasons. Patient minimized his pain today, but reports still has poor and interrupted sleep. Patient denies any appetite problems, and he keeps regular meals to manage his diabetes. The patient denies any manic symptoms including sustained period of time with elevated or irritable mood. The patient denies any auditory or visual hallucinations. Also the patient denies any paranoid ideation. Review of other systems: Patient denies any physical symptoms besides what has been mentioned above. No breathing problems, no chest pain reported today. Objective: Vitals has been reviewed. Mental status examination; Appearance: The patient appears stated age, disheveled, no specific features. Gait/posture: Unstable gait on wheelchair, Normal arm was swinging: No abnormal movements. Attitude and behavior: engaged, partially cooperative, intermittent eye contact. Motor activity: Decreased psychomotor activity Speech: Soft, low tone, not pressured Mood: Anxious Affect: Constricted Thought form: goal-directed, linear, coherent. Thought content: Non-delusional, denies suicidal thoughts, denies homicidal thoughts, denies intentions or plans. Perception: Denies any auditory or visual hallucinations Attention: No impairment. Patient was able to repeat serial 7. Orientation: Patient patient was fully oriented to time place person and situation. Insight: Patient has limited insight about his psychiatric disorder. Judgment: Patient has limited judgment about his psychiatric treatment. Assessment: Major depressive disorder recurrent, severe. unspecified anxiety disorder. Plan: Continue the Neurontin to 300 mg by mouth 3 times a day to address pain and an anxiety. Continue his Cymbalta to 60 mg by mouth twice a day to address depression and anxiety. Increase Elavil to 50 mg at bedtime for better help with sleep disturbances. Vistaril 25 mg 4 times a day when necessary for anxiety Continue current management.
[2016-12-22] MEDS ORDERED: hydrOXYzine PAMOATE 25 MG CAP PO PRN (16:48)
[2016-12-22 17:46] LABS: Glucose,Whole Blood 122 mg/dL (75-99)
[2016-12-22 20:05] LABS: Glucose,Whole Blood 108 mg/dL (75-99)
[2016-12-22] MEDS: AMITRIPTYLINE HCL 50 MG TAB PO SCH (20:58)
[2016-12-23 06:54] LABS: Glucose,Whole Blood 145 mg/dL (75-99)
[2016-12-23] MEDS: HYDROcodone/APAP 5-325MG 1 EACH TAB PO PRN ×3 (07:35→18:39)
[2016-12-23] MEDS: metFORMIN 500 MG TAB PO SCH ×2 (07:36→18:39)
[2016-12-23] MEDS: PANTOPRAZOLE 40 MG TABLET PO SCH ×3 (07:49→18:39)
[2016-12-23] MEDS: INSULIN LISPRO (humaLOG) 300 UNIT/3 ML VIAL SQ SCH ×7 (08:01→21:16)
[2016-12-23] MEDS: DULoxetine HCL 60 MG CAPSULE.DR PO SCH ×2 (09:32→21:16)
[2016-12-23] MEDS: LINAGLIPTIN 5 MG TABLET PO SCH (09:32)
[2016-12-23] MEDS: LISINOPRIL 5 MG TAB PO SCH (09:32)
[2016-12-23] MEDS: GABAPENTIN 300 MG CAP PO SCH ×3 (09:32→21:16)
[2016-12-23 12:52] LABS: Glucose,Whole Blood 159 mg/dL (75-99)
--- NOTE | 2016-12-23 15:41 | P.PN ---
Progress Note - Text SUBJECTIVE: I reviewed the medical record and interviewed Mr. Jensen. He complained of continued feelings depression in regard to his failing health and remains concerned about falling. He stated he fell over the weekend nursing staff asked him to give up the wheeled walker and remained in the wheelchair. He has intermittent thoughts of but denied suicidal intent or plan. OBJECTIVE: He presented as a disheveled appearing 51-year-old male wearing hospital gown. He was in a wheelchair. He is pleasant on approach and maintained eye contact. He had a depressed facial expression. He was alert and oriented to person, place and time. He had psychomotor retardation and intermittent choreiform movements of his arms and legs. His speech was dysarthric with decreased rate, rhythm and volume. His affect was depressed and not reactive. He describes suicidal ideation and wishes. He denied homicidal ideation. He has depressive cognitions including hopelessness, helplessness and worthlessness. He ruminated about his physical health and disability. He did not express phobias, ideas reference or paranoid ideation. His thinking was abstract and associations were coherent and logical. He denied hallucinations and did not appear to be responding to internal stimuli. ASSESSMENT: He continues symptoms of depression with intermittent suicidal thoughts. He has multiple medical problems resulting in increasing disability and impairment and is demonstrating choreiform movements. 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 PLAN: Continue inpatient psychiatric hospitalization. Refer to a tertiary hospital after discharge for a comprehensive neurological evaluation. Continue suicide precautions with 15 minute checks. Continue Elavil 50 mg at bedtime and Cymbalta 60 mg twice a day. Consider augmentation with a second generation antipsychotic. Continue Humalog per sliding scale, Neurontin 300 mg 3 times a day for peripheral neuropathy, Glucophage 500 mg twice a day and Protonix 40 mg twice a day. Continue use of a wheelchairr. Encourage participation in therapeutic groups and activities. Evaluate clinical status and response to treatment daily basis.
[2016-12-23] MEDS: LORazepam 1 MG TAB PO PRN (16:21)
[2016-12-23 17:20] LABS: Glucose,Whole Blood 122 mg/dL (75-99)
[2016-12-23 20:07] LABS: Glucose,Whole Blood 138 mg/dL (75-99)
[2016-12-23] MEDS: AMITRIPTYLINE HCL 50 MG TAB PO SCH (21:16)
[2016-12-24] MEDS: HYDROcodone/APAP 5-325MG 1 EACH TAB PO PRN ×3 (00:18→16:40)
[2016-12-24] MEDS: LORazepam 1 MG TAB PO PRN ×2 (00:18→21:23)
[2016-12-24 07:23] LABS: Glucose,Whole Blood 137 mg/dL (75-99)
[2016-12-24] MEDS: metFORMIN 500 MG TAB PO SCH ×2 (08:10→17:57)
[2016-12-24] MEDS: PANTOPRAZOLE 40 MG TABLET PO SCH ×2 (08:10→16:40)
[2016-12-24] MEDS: LINAGLIPTIN 5 MG TABLET PO SCH (08:11)
[2016-12-24] MEDS: GABAPENTIN 300 MG CAP PO SCH ×3 (08:11→21:24)
[2016-12-24] MEDS: DULoxetine HCL 60 MG CAPSULE.DR PO SCH ×2 (08:11→21:23)
[2016-12-24] MEDS: LISINOPRIL 5 MG TAB PO SCH (08:11)
[2016-12-24] MEDS: INSULIN LISPRO (humaLOG) 300 UNIT/3 ML VIAL SQ SCH ×7 (08:12→21:24)
[2016-12-24 12:45] LABS: Glucose,Whole Blood 119 mg/dL (75-99)
--- NOTE | 2016-12-24 15:40 | P.PN ---
Progress Note - Text SUBJECTIVE: I reviewed the medical record, interviewed Mr. Jensen and discuss his treatment and treatment plan during team meeting. The licensed master social worker and I met with him after treatment team to talk about the placement in subacute rehabilitation. We canceled the discharge yesterday to the program because he did not feel ready. He complained of continued feelings depression in regard to his failing health and remains concerned about falling. He has intermittent thoughts of but denied suicidal intent or plan. We stressed the need to move forward with the placement otherwise he may lose the opportunity. He listened to and understand discussion and agreed to a plan to be discharged on Friday to the rehabilitation program. OBJECTIVE: He presented as a disheveled appearing 51-year-old male wearing hospital gown. He was in a wheelchair. He is pleasant on approach and maintained eye contact. He had a blunted but bright facial expression. He was alert and oriented to person, place and time. He had psychomotor retardation and intermittent choreiform movements of his arms and legs. His speech was dysarthric with decreased rate, rhythm and volume. His affect was depressed but reactive. He describes suicidal ideation and wishes. He denied homicidal ideation. He feels hopeless about his failing health and decreased ability to care for himself. He ruminated about his physical health and disability. He did not express phobias, ideas reference or paranoid ideation. His thinking was abstract and associations were coherent and logical. He denied hallucinations and did not appear to be responding to internal stimuli. ASSESSMENT: He continues symptoms of depression with intermittent suicidal thoughts. He has multiple medical problems resulting in increasing disability and impairment and is demonstrating choreiform movements. He would benefit from placement in the physical rehabilitation program. PLAN: Continue inpatient psychiatric hospitalization. Discharge on 12/25/2016 to [facility] for physical rehabilitation. Recommend a referral to a tertiary hospital after discharge for a comprehensive neurological evaluation. Continue suicide precautions with 15 minute checks. Continue Elavil 50 mg at bedtime and Cymbalta 60 mg twice a day. Continue Humalog per sliding scale, Neurontin 300 mg 3 times a day for peripheral neuropathy, Glucophage 500 mg twice a day and Protonix 40 mg twice a day. Continue use of a wheelchairr. Encourage participation in therapeutic groups and activities. Evaluate clinical status and response to treatment daily basis.
[2016-12-24 17:08] LABS: Glucose,Whole Blood 112 mg/dL (75-99)
[2016-12-24 20:36] LABS: Glucose,Whole Blood 137 mg/dL (75-99)
[2016-12-24] MEDS: AMITRIPTYLINE HCL 50 MG TAB PO SCH (21:24)
[2016-12-25 06:39] VITALS: BP 163/83; PULSE 85; RESP 18; TEMP 98.3
[2016-12-25 07:09] LABS: Glucose,Whole Blood 171 mg/dL (75-99)
[2016-12-25] MEDS: INSULIN LISPRO (humaLOG) 300 UNIT/3 ML VIAL SQ SCH ×4 (08:29→13:36)
[2016-12-25] MEDS: DULoxetine HCL 60 MG CAPSULE.DR PO SCH (08:31)
[2016-12-25] MEDS: PANTOPRAZOLE 40 MG TABLET PO SCH (08:31)
[2016-12-25] MEDS: GABAPENTIN 300 MG CAP PO SCH (08:32)
[2016-12-25] MEDS: LISINOPRIL 5 MG TAB PO SCH (08:32)
[2016-12-25] MEDS: LINAGLIPTIN 5 MG TABLET PO SCH (08:32)
[2016-12-25] MEDS: metFORMIN 500 MG TAB PO SCH (08:34)
[2016-12-25 12:11] LABS: Glucose,Whole Blood 182 mg/dL (75-99)
--- NOTE | 2016-12-25 15:03 | P.DS ---
Providers Date of admission: 12/11/16 18:07 Attending physician: Michael Hernandez MD Consults: 12/11/16 19:34 Consult Physician Routine Consulting Provider: Jackie Oliver Consult Reason/Comments: Medical Management Do you want consulting provider notified?: Yes 12/12/16 11:09 Consult Physician Routine Consulting Provider: Della Haider Consult Reason/Comments: Rule Out Siddhartha's Disease Do you want consulting provider notified?: Yes 12/18/16 11:34 Consult Physician Routine Consulting Provider: Chris Flores Consult Reason/Comments: inpatient rehab eval Do you want consulting provider notified?: Yes Primary care physician: Stated None - Discharge Diagnosis(es) (1) Major depressive disorder, recurrent severe without psychotic features Current Visit: Yes Status: Chronic Priority: Medium (2) Family history of Siddhartha's disease Current Visit: Yes Status: Chronic Priority: High (3) Diabetic neuropathy Current Visit: Yes Status: Chronic Priority: Low (4) Hypertension Current Visit: No Status: Chronic Priority: Low (5) Suicide attempt Current Visit: No Status: Acute Priority: High Hospital Course: Mr. Jensen is a 51-year-old male who is unemployed and receiving so screen disability. He presented to emergency room on 2 12/10/2016 following an overdose of Benadryl. He was admitted to the ICU. He was tachycardic but had no dysrhythmias. Medicine consulted psychiatry who recommended transfer to the psychiatric unit when medically stable. He described a history of depression that has worsened since November 2015 when his mother . He described all symptoms consistent with a major depressive disorder. He also attributed his depression to his chronic medical illness season has resulted in unsteady gait and frequent falling. He feels useless that he is unable to take care of himself. His family history significant for Siddhartha's disease; his father and older brother in early age with Siddhartha's disease. Please see the admission assessment dated 12/11/2016 for full history. We admitted him to the psychiatric unit initially under the care of Dr. Sanders. We provided a biopsychosocial assessment. The web consultant casework manager completed the initial school exam and medical history. The web consultant's diagnoses included walking difficulty, dorsal back pain, lumbar disc disease, diabetes, diabetic peripheral neuropathy, family history of [place]'s disease, hypertension, dyslipidemia, history of asthma and decreased auditory acuity. The web consultant recommended PT and OT and referral for residential rehabilitation. He was accepted to the [facility] residential rehabilitation program. We continued most of his outpatient medications including Protonix 40 mg twice a day, metformin 1000 mg twice a day, lisinopril 5 mg daily, trigeminal Tylenol 5 mg daily, Humalog 5 mg subcu 3 times a day, [place] 5-325 every 6 hours when necessary for pain, gabapentin 300 mg 3 times a day, duloxetine 60 mg twice a day and Elavil 50 mg at bedtime. We consulted neurology. The neurologist recommended a referral to a tertiary Medical Center with specialists in Loving's disease where he can be evaluated further disorder and provided with genetic testing. We placed him on suicide precautions with 15 minute checks. He posed no management problem and had no episodes of behavioral dyscontrol. He made no suicidal or suicidal gestures. He participated in therapeutic groups and activities. He had difficulty safely ambulating with a wheeled walker due to the gait instability and choreiform movements. His mood improved but he continued to feel helpless regarding the severity of his physical problems. At the time of discharge he denied feeling depressed, sad or blue much of the time. He denied problems sleeping. He continues to feel helpless about his future and his thinking decreased interest in usual activities. Patient Condition at Discharge: Stable Plan - Discharge Summary New Discharge Prescriptions: Amitriptyline HCl [Elavil] 50 mg PO HS 30 Days DULoxetine HCL [Cymbalta] 60 mg PO BID 30 Days Gabapentin [Neurontin] 300 mg PO TID 30 Days HYDROcodone/APAP 5-325MG [[place] 5-325] 1 each PO Q6HR PRN 30 Days PRN Reason: Pain INSULIN LISPRO (humaLOG) [humaLOG (formulary)] 5 unit SQ AC-TID 30 Days Linagliptin [Tradjenta] 5 mg PO DAILY 30 Days Lisinopril [Zestril] 5 mg PO DAILY 30 Days Pantoprazole [Protonix] 40 mg PO AC-BID 30 Days metFORMIN HCL [Glucophage] 1,000 mg PO BID-W/MEALS 30 Days Discharge Medication List Amitriptyline HCl [Elavil] 50 mg PO HS 30 Days 12/25/16 [Rx] DULoxetine HCL [Cymbalta] 60 mg PO BID 30 Days 12/25/16 [Rx] Gabapentin [Neurontin] 300 mg PO TID 30 Days 12/25/16 [Rx] HYDROcodone/APAP 5-325MG [[place] 5-325] 1 each PO Q6HR PRN 30 Days 12/25/16 [Rx] INSULIN LISPRO (humaLOG) [humaLOG (formulary)] 5 unit SQ AC-TID 30 Days [Rx] Linagliptin [Tradjenta] 5 mg PO DAILY 30 Days 12/25/16 [Rx] Lisinopril [Zestril] 5 mg PO DAILY 30 Days 12/25/16 [Rx] Pantoprazole [Protonix] 40 mg PO AC-BID 30 Days 12/25/16 [Rx] metFORMIN HCL [Glucophage] 1,000 mg PO BID-W/MEALS 30 Days 12/25/16 [Rx] Follow up Appointment(s)/Referral(s): [facility] [Outside] - 1 Week ([facility] to follow up with pt in [facility]. [facility] to schedule at their convenience. ) Della Haider MD [STAFF PHYSICIAN] - 1 Week Discharge Disposition: HOME SELF-CARE
== END 2016-12-25 16:14 | disposition home or self-care (01) | DRG 885 ==
LOC: 3MHU 18:07
PROVIDERS: ADMIT Psychiatry & Neurology Psychiatry; ATTEND Psychiatry & Neurology Psychiatry
DX: F33.2 Major depressive disorder, recurrent severe without psychotic features (principal); E11.40 Type 2 diabetes mellitus with diabetic neuropathy, unspecified; E78.5 Hyperlipidemia, unspecified; F17.210 Nicotine dependence, cigarettes, uncomplicated; F41.9 Anxiety disorder, unspecified; F90.9 Attention-deficit hyperactivity disorder, unspecified type; H91.90 Unspecified hearing loss, unspecified ear; I10 Essential (primary) hypertension; J45.909 Unspecified asthma, uncomplicated; M19.90 Unspecified osteoarthritis, unspecified site; M51.16 Intervertebral disc disorders with radiculopathy, lumbar region; Z79.84 Long term (current) use of oral hypoglycemic drugs; Z79.899 Other long term (current) drug therapy; Z81.8 Family history of other mental and behavioral disorders; Z82.0 Family history of epilepsy and other diseases of the nervous system; Z82.49 Family history of ischemic heart disease and other diseases of the circulatory system; Z82.5 Family history of asthma and other chronic lower respiratory diseases; Z83.3 Family history of diabetes mellitus; Z91.14 Patient's other noncompliance with medication regimen; E11.65 Type 2 diabetes mellitus with hyperglycemia; Z79.4 Long term (current) use of insulin; Z56.0 Unemployment, unspecified; Z63.4 Disappearance and death of family member; R26.2 Difficulty in walking, not elsewhere classified; Z60.2 Problems related to living alone; Z84.1 Family history of disorders of kidney and ureter; T45.0X2D Poisoning by antiallergic and antiemetic drugs, intentional self-harm, subsequent encounter
CPT/HCPCS: 71020; 83735; 84100; 84443; 85025

== ENCOUNTER → 2017-02-18 | Outpatient (CLI) | payer MEDICARE, OTHER ==
--- NOTE | 2017-02-18 10:40 | MR ---
MR cervical and thoracic spine without contrast HISTORY: Herniated disc, recurrent falls, chorea Multiplanar multisequence imaging through the cervical and thoracic spine No comparisons MR cervical spine: There is loss of normal cervical lordosis. Cervical vertebral bodies show preserve d height and alignment. There is multilevel spondylosis with endplate discogenic marrow signal change . Loss of disc signal compatible with disc desiccation. Cervical cord signal is maintained. C2-3: Unremarkable C3-4: Small posterior disc bulge causes mild anterior mass effect on the thecal sac. No significant f oraminal encroachment or central stenosis C4-5: Posterior broad-based disc bulge causes mild anterior mass effect on the thecal sac. Lateral ex tension of endplate disc complex results in foraminal encroachment left greater than right. No signif icant central stenosis. C5-6: Right posterior paracentral disc herniation contacts anterior cervical cord. No significant jacobo tral stenosis or foraminal encroachment C6-7: Posterior broad-based disc bulge causes anterior mass effect on the thecal sac, lateral extensi on causes foraminal encroachment left greater than right. There is mild central stenosis. C7-T1: Unremarkable IMPRESSION: Multilevel degenerative disc disease and foraminal encroachment, disc herniation at C5-6. Thoracic spine MRI: Thoracic vertebral bodies show preserved height and alignment. There is multileve l spondylosis, endplate discogenic marrow signal change, loss of disc height and signal compatible wi th disc desiccation and degenerative disc disease. Thoracic cord signal is maintained. Mild multilevel posterior disc protrusions cause minimal anterior mass effect on the thecal sac but n o significant central stenosis. Facet arthropathy changes at the lower levels causes mild lateral rec ess encroachment. IMPRESSION: Degenerative disc disease, facet arthropathy. No significant central stenosis or foramina l encroachment.
--- NOTE | 2017-02-18 11:00 | MR ---
EXAMINATION TYPE: MR lumbar spine wo/w con DATE OF EXAM: 02/18/2017 COMPARISON: NONE HISTORY: herniated dis lsp, chorea, abn mvma, recurrent falls TECHNIQUE: Multiplanar, multisequence images of the lumbar spine were acquired utilizing 20 mL intravenous Multi Alex gadolinium contrast. L1-L2: Normal disc appearance without desiccation. No herniation, protrusion or disc bulging. No ca nal stenosis is present. Foramina are patent bilaterally. L2-L3: Normal disc appearance without desiccation. No herniation, protrusion or disc bulging. No ca nal stenosis is present. Foramina are patent bilaterally. L3-L4: Circumferential extension of endplate disc complex encroaches mildly on the neural foramina gr eater on the right. Facet arthropathy changes present causing some encroachment on the lateral recess es. No significant central stenosis. L4-L5: Facet arthropathy with hypertrophy of the ligamentum flavum encroaches somewhat on the lateral recesses. Circumferential extension of endplate disc complex encroaches somewhat on the foramina, malik spect there is a lateral disc herniation on the left encroaching on the neural foramen causing some a nterolateral mass effect on the thecal sac findings may be accentuated by slight spinal curvature. No significant central stenosis. L5-S1: Posterior central disc herniation contacts anterior thecal sac possibly proximal S1 nerve root s. Circumferential extension of endplate disc complex encroaches on the neural foramina bilaterally. There is some associated facet arthropathy. Lumbar segments are intact. No paraspinal masses are identified. Conus medullaris has a normal appe arance. There is some motion on the exam. Loss of disc height and signal greatest at L5-S1, there is associated vacuum phenomenon, spondylosis, endplate discogenic marrow signal change. Multilevel Schmo rl's node formation also present, loss of disc height and signal also present to a lesser extent L3-4 , L4-5, L1-2. No abnormal enhancement following contrast menstruation. IMPRESSION: Degenerative disc disease with sizable disc herniation L5-S1 as described. Additional findings above.
== END | disposition home or self-care (01) ==
LOC: RADMRIMAIN 08:06
PROVIDERS: ATTEND Psychiatry & Neurology Neurology
DX: M50.30 Other cervical disc degeneration, unspecified cervical region (principal); M46.92 Unspecified inflammatory spondylopathy, cervical region; M51.26 Other intervertebral disc displacement, lumbar region; M51.36 Other intervertebral disc degeneration, lumbar region
CPT/HCPCS: 72141; 72146; 72158; A9577

== ENCOUNTER → 2017-03-26 | Outpatient (CLI) | payer MEDICARE ==
--- NOTE | 2017-03-26 16:05 | MR ---
EXAMINATION TYPE: MR brain wo con DATE OF EXAM: 03/26/2017 COMPARISON: Correlation CT 12/10/2016 HISTORY: 51-year-old male with repeated falls TECHNIQUE: Multiplanar, multisequence images of the brain and brainstem were acquired without IV con trast. Diffusion weighted imaging is performed. FINDINGS: No evidence for acute infarction, hemorrhage, mass, mass effect, midline shift, herniation, effacemen t of basal cisterns, or extra-axial fluid collection. There is dsml-[id number]-iucpqasc generalized supratentorial volume loss. No ventriculomegaly. Major intracranial flow voids are intact. T2/FLAIR weighted sequences show mild scattered burden of bright white matter foci within the subcort ical and deep white matter of both cerebral hemispheres. Additional focus within the right param[place] suggesting old lacunar infarcts. Midline structures demonstrate normal morphology. The craniocervical junction is normal. The visualized sinuses are clear and the globes are intact. Leftward nasal septal deviation. IMPRESSION: Uyfu-bj-iacjxbrf cerebral atrophy. Mild scattered burden of T2 bright white matter change. This is no nspecific but likely corresponds to changes of chronic small vessel ischemic disease. Suggestion of r emote lacunar infarct in the right perim[place] savanna. No acute intracranial abnormality seen.
== END | disposition home or self-care (01) ==
LOC: RADMRIMAIN 15:18
PROVIDERS: ATTEND Psychiatry & Neurology Neurology
DX: G31.9 Degenerative disease of nervous system, unspecified (principal); R90.82 White matter disease, unspecified
CPT/HCPCS: 70551

== ENCOUNTER → 2017-05-12 | Outpatient (CLI) | payer MEDICARE, OTHER ==
--- NOTE | 2017-05-12 14:22 | US ---
EXAMINATION TYPE: US carotid duplex BILAT DATE OF EXAM: 05/12/2017 COMPARISON: NONE CLINICAL HISTORY: R90.89 Abnormal Brain MRI, Z86.73 Hx of stroke. Stroke EXAM MEASUREMENTS: RIGHT: Peak Systolic Velocity (PSV) cm/sec ----- Right CCA: 76.7 ----- Right ICA: 87.8 ----- Right ECA: 89.5 ICA/CCA ratio: 1.1 RIGHT: End Diastole cm/sec ----- Right CCA: 19.4 ----- Right ICA: 31.9 ----- Right ECA: 11.6 LEFT: Peak Systolic Velocity (PSV) cm/sec ----- Left CCA: 77.5 ----- Left ICA: 71.8 ----- Left ECA: 120.3 ICA/CCA ratio: 0.9 LEFT: End Diastole cm/sec ----- Left CCA: 18.4 ----- Left ICA: 28.9 ----- Left ECA: 12.6 VERTEBRALS (direction of flow): Right Vertebral: Antegrade Left Vertebral: Antegrade No elevated velocities, no significant stenosis IMPRESSION: No evidence of hemodynamically significant stenosis within either carotid system.
== END ==
LOC: RADUSWWP 13:35
PROVIDERS: ATTEND Psychiatry & Neurology Neurology
DX: R90.89 Other abnormal findings on diagnostic imaging of central nervous system (principal); Z86.73 Personal history of transient ischemic attack (TIA), and cerebral infarction without residual deficits
CPT/HCPCS: 93880

== ENCOUNTER 2017-06-11 12:53 | Emergency (ER) | payer MEDICARE, OTHER ==
[2017-06-11] MEDS ORDERED: SODIUM CHLORIDE 0.9% 1,000 ML IV STA (13:02)
[2017-06-11] MEDS ORDERED: RX INFO: IV CONTRAST WAS GIVEN 1 EACH MISC MISCELLANE PRN (13:02)
[2017-06-11 13:06] VITALS: RESP 18
[2017-06-11 13:10] LABS: Glucose,Whole Blood 166 mg/dL (75-99)
--- NOTE | 2017-06-11 13:11 | ED ---
General Adult HPI - General Stated complaint: poss stroke Time Seen by Provider: 06/11/17 13:02 Source: patient, EMS, RN notes reviewed Mode of arrival: EMS Limitations: altered mental status - History of Present Illness Initial comments: Patient is a pleasant 51-year-old male presenting to emergency Department with concern for possible stroke. Patient apparently had some abnormality this morning which was unknown. Patient had an episode around time of breakfast with decreased responsiveness/fall. Patient does not recall the episode however it is reported that he did not pass out. Following this sometime around noon patient was noticed to have some complete aphasia. EMS reports patient has improved speech however still very garbled. Patient is able to answer questions with extreme stuttering and has slowness to respond and still some garbled of the speech. Patient feels he is somewhat weaker than normal on the right side. EMS reported patient seems somewhat weaker on the left side. Patient has history of [place]'s disease. Patient states at this time his strength feels close to normal but he is more shaky than normal. - Related Data Previous Rx's Medication Instructions Recorded Amitriptyline HCl [Elavil] 50 mg PO HS 30 Days 12/25/16 DULoxetine HCL [Cymbalta] 60 mg PO BID 30 Days 12/25/16 Gabapentin [Neurontin] 300 mg PO TID 30 Days 12/25/16 HYDROcodone/APAP 5-325MG [[place] 1 each PO Q6HR PRN 30 Days 12/25/16 5-325] INSULIN LISPRO (humaLOG) [humaLOG 5 unit SQ AC-TID 30 Days 12/25/16 (formulary)] Linagliptin [Tradjenta] 5 mg PO DAILY 30 Days 12/25/16 Lisinopril [Zestril] 5 mg PO DAILY 30 Days 12/25/16 Pantoprazole [Protonix] 40 mg PO AC-BID 30 Days 12/25/16 metFORMIN HCL [Glucophage] 1,000 mg PO BID-W/MEALS 30 Days 12/25/16 Allergies Allergy/AdvReac Type Severity Reaction Status Date / Time No Known Allergies Allergy Verified 12/11/16 18:39 Review of Systems ROS Statement: Those systems with pertinent positive or pertinent negative responses have been documented in the HPI. ROS Other: All systems not noted in ROS Statement are negative. Constitutional: Denies: fever Eyes: Denies: eye pain ENT: Denies: ear pain Respiratory: Denies: cough Cardiovascular: Denies: chest pain Endocrine: Denies: fatigue Gastrointestinal: Denies: abdominal pain Genitourinary: Denies: dysuria Musculoskeletal: Denies: back pain Skin: Denies: rash Neurological: Reports: weakness Past Medical History Past Medical History: Asthma, Diabetes Mellitus, Hearing Disorder / Deafness, Hyperlipidemia, Hypertension, Osteoarthritis (OA) Additional Past Medical History / Comment(s): Numerous back problems and pain, Neuropathy. History of Any Multi-Drug Resistant Organisms: None Reported Past Surgical History: Unable to Obtain Additional Past Surgical History / Comment(s): Hemilaminectomy-2012 Past Anesthesia/Blood Transfusion Reactions: No Reported Reaction Past Psychological History: ADD/ADHD, Depression Smoking Status: Current every day smoker Past Alcohol Use History: None Reported Past Drug Use History: None Reported - Past Family History Brother(s) Additional Family Medical History / Comment(s): 1 Brother at the age of 5353 years old as result of ESRD. Another brother at the age of 4343 years old from [place]' disease. His middle brother is still alive at the age of 60 with no medical problems. Sister(s) Additional Family Medical History / Comment(s): Patient's sister is alive at the age of 6161 years old with plantar fascia. Mother Family Medical History: Cancer Additional Family Medical History / Comment(s): Patient's mother at the age of 8888 years old from cancer. Father Family Medical History: Cancer, Diabetes Mellitus, Hyperlipidemia, Hypertension Additional Family Medical History / Comment(s): Patient's father also had [place]'s disease at the age of 6868 years old. General Exam Limitations: no limitations General appearance: alert, in no apparent distress Head exam: Present: normocephalic Eye exam: Present: normal appearance, PERRL, EOMI ENT exam: Present: normal oropharynx Neck exam: Present: normal inspection, tenderness (Mild tenderness diffuse cervical spine) Respiratory exam: Present: normal lung sounds bilaterally Cardiovascular Exam: Present: regular rate, normal rhythm GI/Abdominal exam: Present: soft. Absent: tenderness Extremities exam: Present: normal inspection Neurological exam: Present: alert, CN II-XII intact Expanded Neurological exam: Present: protecting the airway, other (Extreme slurring, garbled speech) Cranial nerves: EOM's Intact: Normal, Facial Sensation: Normal Sensory exam: Upper Extremity Light Touch: Normal, Lower Extremity Light Touch: Normal Motor strength exam: RUE: 4, LUE: 4, RLE: 4, LLE: 4 Psychiatric exam: Present: normal affect, normal mood Skin exam: Present: normal color Course Vital Signs 06/11/17 06/11/17 06/11/17 13:00 13:15 13:30 Temperature 98.3 F Pulse Rate 84 79 78 Respiratory 18 18 18 Rate Blood Pressure 166/100 170/91 169/88 O2 Sat by Pulse 99 96 99 Oximetry 06/11/17 06/11/17 13:45 13:53 Temperature Pulse Rate 77 77 Respiratory 18 18 Rate Blood Pressure 181/94 176/77 O2 Sat by Pulse 99 99 Oximetry - Reevaluation(s) Reevaluation #1: 06/11/17 13:50 Patient was interviewed over the stroke robot and films were reviewed by Dr. Stephenson, he did call and did recommend TPA. 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 Dr. Stephenson did order TPA. 06/11/17 13:51 Dr. Stephenson also states he will arrange transfer 06/11/17 14:06 Patient was reevaluated by myself with similar symptoms. 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 Patient states he did request to have TPA provided and is thankful for care provided. Patient is aware that he will be transferred. Medical Decision Making - Lab Data Result diagrams: 06/11/17 13:00 06/11/17 13:00 Lab Results 06/11/17 06/11/17 06/11/17 Range/Units 12:58 13:00 13:00 WBC 7.2 (3.8-10.6) k/uL RBC 4.97 (4.30-5.90) m/uL Hgb 15.2 (13.0-17.5) gm/dL Hct 46.0 (39.0-53.0) % MCV 92.7 (80.0-100.0) fL MCH 30.6 (25.0-35.0) pg MCHC 33.0 (31.0-37.0) g/dL RDW 12.8 (11.5-15.5) % Plt Count 301 (150-450) k/uL Neutrophils % 48 % Lymphocytes % 38 % Monocytes % 6 % Eosinophils % 4 % Basophils % 1 % Neutrophils # 3.5 (1.3-7.7) k/uL Lymphocytes # 2.8 (1.0-4.8) k/uL Monocytes # 0.5 (0-1.0) k/uL Eosinophils # 0.3 (0-0.7) k/uL Basophils # 0.0 (0-0.2) k/uL PT (9.0-12.0) sec INR (<1.2) APTT (22.0-30.0) sec Sodium (137-145) mmol/L Potassium (3.5-5.1) mmol/L Chloride (98-107) mmol/L Carbon Dioxide (22-30) mmol/L Anion Gap mmol/L BUN (9-20) mg/dL Creatinine (0.66-1.25) mg/dL Est GFR (MDRD) Af Amer (>60 ml/min/1.73 sqM) Est GFR (MDRD) Non-Af (>60 ml/min/1.73 sqM) Glucose (74-99) mg/dL POC Glucose (mg/dL) 166 H (75-99) mg/dL POC Glu Moly[place] Steamer Operator ID Josh Byrd Calcium (8.4-10.2) mg/dL Total Bilirubin (0.2-1.3) mg/dL AST (17-59) U/L ALT (21-72) U/L Alkaline Phosphatase (38-126) U/L Total Creatine Kinase 69 (55-170) U/L CK-MB (CK-2) 1.7 (0.0-2.4) ng/mL CK-MB (CK-2) Rel Index 2.5 Troponin I <0.012 (0.000-0.034) ng/mL Total Protein (6.3-8.2) g/dL Albumin (3.5-5.0) g/dL 06/11/17 06/11/17 Range/Units 13:00 13:00 WBC (3.8-10.6) k/uL RBC (4.30-5.90) m/uL Hgb (13.0-17.5) gm/dL Hct (39.0-53.0) % MCV (80.0-100.0) fL MCH (25.0-35.0) pg MCHC (31.0-37.0) g/dL RDW (11.5-15.5) % Plt Count (150-450) k/uL Neutrophils % % Lymphocytes % % Monocytes % % Eosinophils % % Basophils % % Neutrophils # (1.3-7.7) k/uL Lymphocytes # (1.0-4.8) k/uL Monocytes # (0-1.0) k/uL Eosinophils # (0-0.7) k/uL Basophils # (0-0.2) k/uL PT 10.1 (9.0-12.0) sec INR 1.0 (<1.2) APTT 25.1 (22.0-30.0) sec Sodium 138 (137-145) mmol/L Potassium 4.6 (3.5-5.1) mmol/L Chloride 101 (98-107) mmol/L Carbon Dioxide 25 (22-30) mmol/L Anion Gap 12 mmol/L BUN 7 L (9-20) mg/dL Creatinine 0.67 (0.66-1.25) mg/dL Est GFR (MDRD) Af Amer >60 (>60 ml/min/1.73 sqM) Est GFR (MDRD) Non-Af >60 (>60 ml/min/1.73 sqM) Glucose 171 H (74-99) mg/dL POC Glucose (mg/dL) (75-99) mg/dL POC Glu Molyb[place]um Steamer Operator ID Calcium 9.7 (8.4-10.2) mg/dL Total Bilirubin 0.2 (0.2-1.3) mg/dL AST 23 (17-59) U/L ALT 32 (21-72) U/L Alkaline Phosphatase 79 (38-126) U/L Total Creatine Kinase (55-170) U/L CK-MB (CK-2) (0.0-2.4) ng/mL CK-MB (CK-2) Rel Index Troponin I (0.000-0.034) ng/mL Total Protein 6.8 (6.3-8.2) g/dL Albumin 4.0 (3.5-5.0) g/dL - Radiology Data Radiology results: report reviewed (Computed tomography scan of the brain and cervical spine shows age-related atrophy and chronic small vessel ischemic change without acute intercranial process. No acute fracture or subluxation of the cervical spine.) Disposition Clinical Impression: Cerebrovascular accident Disposition: OTHER INSTITUTION NOT DEFINED Referrals: Leonel Mora MD [Primary Care Provider] - 1-2 days Time of Disposition: 14:08 - Out of Hospital Transfer - Req. Specs Out of Hospital Transfer - Requested Specifics: Neurological ICU
[2017-06-11 13:20] LABS: Basophils % (A) 1 %; CH 30.7; CHCM 33.3; Eosinophils # (A) 0.3 k/uL (0-0.7); Eosinophils % (A) 4 %; HDW 2.42; HGB 15.2 gm/dL (13.0-17.5); Luc % (Auto) 3; Lymphocytes # (A) 2.8 k/uL (1.0-4.8); Lymphocytes % (A) 38 %; MCH 30.6 pg (25.0-35.0); MCV 92.7 fL (80.0-100.0); Mean Platelet Volume 6.7; Monocytes # (A) 0.5 k/uL (0-1.0); Monocytes % (A) 6 %; Neutrophils # (A) 3.5 k/uL (1.3-7.7); Neutrophils % (A) 48 %; RBC 4.97 m/uL (4.30-5.90); RDW 12.8 % (11.5-15.5); WBC 7.2 k/uL (3.8-10.6); WBC (Perox) 7.08
[2017-06-11 13:24] LABS: Partial Thromboplastin Time 25.1 sec (22.0-30.0); Prothrombin Time 10.1 sec (9.0-12.0)
[2017-06-11 13:33] LABS: ALT 32 U/L (21-72); AST 23 U/L (17-59); Alkaline Phosphatase 79 U/L (38-126); Anion Gap 12 mmol/L; Blood Urea Nitrogen 7 mg/dL (9-20); Calcium 9.7 mg/dL (8.4-10.2); Carbon Dioxide 25 mmol/L (22-30); Chloride 101 mmol/L (98-107); Glucose 171 mg/dL (74-99); Non-African American GFR(MDRD) >60 (>60 ml/min/1.73 sqM); Sodium 138 mmol/L (137-145); Total Bilirubin 0.2 mg/dL (0.2-1.3); Total Protein 6.8 g/dL (6.3-8.2)
[2017-06-11 13:36] LABS: Potassium 4.6 mmol/L (3.5-5.1)
--- NOTE | 2017-06-11 13:36 | CT ---
EXAMINATION TYPE: CT brain tisha thomas DATE OF EXAM: 06/11/2017 COMPARISON: 12/10/2016 HISTORY: neuro deficits/fall/poss CVA CT DLP: 2027.[address] of the brain was performed. The ventricles, basal cisterns and sulci overlying the cerebral convexities demonstrate mild enlargem ent. There is no evidence for intracranial hemorrhage or sulcal effacement. There is decreased attenuatio n about the periventricular white matter and deep white matter of both cerebral hemispheres, compatib le with chronic small vessel ischemia. No mass effects are seen. If symptoms persist consider MRI. Osseous calvarium is intact. IMPRESSION: 1. Age related atrophic and chronic small vessel ischemic change without acute intracranial process seen at this time. CT Cervical Spine: Unenhanced CT of the cervical spine was performed with bone and soft tissue window settings submitted . Coronal and sagittal reconstruction is obtained. There is normal alignment and prevertebral soft tissues. No evidence for acute cervical fracture . Scattered degenerative disc disease and spondylosis. Biapical scarring. IMPRESSION: 1. No evidence for acute fracture or subluxation of the cervical spine.
[2017-06-11] MEDS ORDERED: ALTEPLASE BOLUS 9 MG in EMPTY SYRINGE 1 SYR IV STA (13:47)
[2017-06-11] MEDS ORDERED: ALTEPLASE 81 MG in EMPTY BAG 1 BAG IV STA (13:47)
[2017-06-11 13:48] LABS: Creatine Kinase 69 U/L (55-170)
[2017-06-11 14:01] LABS: Creatine Kinase MB 1.7 ng/mL (0.0-2.4); Troponin I <0.012 ng/mL (0.000-0.034)
--- NOTE | 2017-06-11 14:15 | CT ---
EXAMINATION TYPE: CT angio head neck DATE OF EXAM: 06/11/2017 COMPARISON: NONE HISTORY: Neuro Deficits, CONTRAST: patient injected with 100 mL of Omnipaque 300. Combination Contrast CTA cervical carotids and [place] CTA cervical carotids with 3-D recons truction Contrast CTA of the cervical carotids was performed 3-D reconstruction imaging obtained at a separate workstation. Patient motion limits evaluation. Right carotid system: Mild plaque is seen of the right common carotid artery. There is moderate hete rogenous plaque also noted at the carotid bulb and proximal ICA. Estimated diameter reduction of gre ater than 70% suspected. ECA is patent. Right vertebral artery appears unremarkable. Left carotid system: Mild plaque is seen of the left common carotid artery. There is mild plaque als o noted at the carotid bulb and proximal ICS. No significant diameter reduction. ECA is patent. Lef t vertebral artery appears unremarkable. IMPRESSION: 1. Irregular plaque right ICA with estimated diameter reduction of greater than 70%. Patient motion d oes limit evaluation. CTA [place] with 3-D reconstruction Contrast CTA of the [place] was performed 3-D reconstruction imaging obtained at a separate workstation. Vertebrobasilar system as well as intracranial portions of the internal carotid arteries and their ma nubia tributaries are patent. Abrupt cut off of the supraclinoid left ICA is felt to be technical in nature and may be related to b one contamination. I do not see evidence for sizable aneurysm or vascular malformation. Please note MRI provides greater sensitivity and specificity. Visualized brain appears grossly unremarkable. IMPRESSION: 1. Abrupt cut off of the supraclinoid left ICA is felt to be technical in nature and may be related t o bone contamination. No discrete abnormality appreciated.
[2017-06-11 15:12] VITALS: BP 145/88; PULSE 81; TEMP 98
== END 2017-06-11 15:25 | disposition other institution (70) ==
LOC: EC 12:53
DX: I63.9 Cerebral infarction, unspecified (principal); F17.200 Nicotine dependence, unspecified, uncomplicated; E11.9 Type 2 diabetes mellitus without complications; I10 Essential (primary) hypertension; H91.90 Unspecified hearing loss, unspecified ear; F90.9 Attention-deficit hyperactivity disorder, unspecified type; F32.9 Major depressive disorder, single episode, unspecified; Z79.4 Long term (current) use of insulin; Z79.899 Other long term (current) drug therapy
CPT/HCPCS: 99285 ×2; 96365 ×2; 36415; 93005; 80053; 82550; 82553; 84484; 85025; 85610; 85730; 72125; 70496; 70450; 70498; J2997; Q9967